=== PATIENT | male | born 1940 | race Caucasian/White ===

== ENCOUNTER 2016-10-09 17:15 | Inpatient (IN) | payer MEDICARE, OTHER ==
[~2016-10-09] VITALS: Ht 182.9 cm; Wt 91.0 kg
[2016-10-09] MEDS ORDERED: SODIUM CHLORIDE 0.9% 1000ML 250 ML IV STA (17:37)
--- NOTE | 2016-10-09 17:47 | EMERGENCY ROOM VISIT NOTE ---
History Report prepared by Inocencia: Britton Bojorquez Under the Supervision of: Dr. Arturo Hauser M.D. First contact with patient: 17:23 Chief Complaint: REFERRED BY DOCTOR Stated Complaint: BAD COUGH, HAD AN EKG WAS TOLD TO COME HERE History of Present Illness The patient is a 76 year old male who presents to the Emergency Room with complaints of a resolving cough that started around 4 days ago. He was seen at [facility] prior to arrival today and was referred here due to a concern with the patient's EKG. His chest x-ray was clear however. The patient is from [place], and has been extensively traveling by car and plane over the past week. He developed a bad cough during his travels, which became severe a few days ago. The patient thought it was chest congestion due to his wheezing, so he took Mucinex a few days ago. Last night, he says that his wheezing was intense, and it was hurting his ability to breathe. The patient's daughter gave the patient albuterol spray, and the patient notes that he started to feel better and his passageways opened up. The patient had another albuterol spray this morning, and it again helped. He says that his cough is mostly gone. The patient denies any jaw pain or any other pain, except that for the past few months, the patient has had pain around his chest intermittently while walking early in the morning. The patient had a heart attack 3 years ago, and he says this pain is not the same as the heart attack pain. The patient has seen his primary care physician for this chest pain, and the physician has said that it could be "asthma from cold mornings". The patient notes that this pain is only when he walks and that when he does heavier exertion such as skiing, he does not get this pain. The patient had a stent put in 3 years ago. He is on Coumadin , Aspirin, and Coreg. Source of History: patient, family Onset: 4 days ago Position: other (global - cough) Timing: other (resolving) Modifying Factors (Relieving): other (albuterol) Associated Symptoms: + SOB Note: Associated symptoms: Patient notes wheezing. Denies jaw pain or any other pain, other than for past few months intermittent pain around chest while walking in morning. Review of Systems See HPI for pertinent positives & negatives. A total of 10 systems reviewed and were otherwise negative. Past Medical & Surgical Medical Problems: (1) Acute lower gastrointestinal hemorrhage (2) Bronchitis (3) Chronic lower gastrointestinal hemorrhage (4) Heart attack (5) Prostate cancer Family History Cancer Diabetes mellitus FH: heart disease FHx: lung disease Hypertension Social History Smoking Status: Never Smoker Smokeless Tobacco Use: No Alcohol Use: occasionally Marital Status: Housing Status: lives with family Occupation Status: employed Current/Historical Medications Scheduled Aspirin (Aspirin Ec), 81 MG PO DAILY Atorvastatin (Lipitor), 40 MG PO DAILY Carvedilol (Coreg), 3.125 MG PO BID Dutasteride (Avodart), 0.5 MG PO DAILY Lisinopril (Zestril), 2.5 MG PO DAILY Spironolactone (Aldactone), 25 MG PO DAILY Warfarin Sod (Jantoven), 6 MG PO 4XWK Warfarin Sod (Jantoven), 4.5 MG PO 3XWK Allergies Coded Allergies: No Known Allergies (Unverified , 10/09/16) Physical Exam Vital Signs Date Time Temp Pulse Resp B/P Pulse Ox O2 Delivery O2 Flow Rate FiO2 10/09/16 19:38 67 20 130/72 98 Room Air 10/09/16 19:30 66 23 98 10/09/16 19:00 67 24 130/71 98 10/09/16 18:53 63 18 110/69 98 Room Air 10/09/16 17:37 65 10/09/16 17:31 97 Room Air 10/09/16 17:19 36.7 74 18 140/87 98 Room Air Physical Exam GENERAL: Patient is in no acute distress. HEENT: No acute trauma, normocephalic atraumatic, mucous membranes moist, no nasal congestion, no scleral icterus. NECK: No stridor, no adenopathy, no meningismus, trachea is midline. LUNGS: Scattered wheezing. No wheezing or rhonchi. Breath sounds equal and full. HEART: Regular rhythm with normal rate. Subtle systolic murmur. ABDOMEN: Soft, nontender, bowel sounds positive, no hernias, no peritonitis. RECTAL: Brown stool, heme positive. EXTREMITIES: No cyanosis or edema, full range of motion of all the joints without pain or difficulty, no signs for acute trauma. NEUROLOGIC: Oriented x 3, no acute motor or sensory deficits, no focal weakness. SKIN: No rash, no jaundice, no diaphoresis. Medical Decision & Procedures ER Provider Diagnostic Interpretation: X-ray results as stated below per interpretation by me and the radiologist: CHEST ONE VIEW PORTABLE CLINICAL HISTORY: Atypical chest pain and shortness of breath COMPARISON STUDY: No previous studies for comparison. FINDINGS: The cardiac and mediastinal contours are normal. There is no evidence of focal pulmonary consolidation. There is no evidence of failure. No pleural effusions are visualized.[ There are minor left basilar atelectatic changes. IMPRESSION: No active disease in the chest. Electronically signed by: Antoni Pelletier M.D. 10/09/2016 7:33 PM Dictated Date/Time: 10/09/2016 7:33 PM Laboratory Results 10/09/16 18:00 10/09/16 18:00 Test 10/09/16 18:00 Red Blood Count 3.30 M/uL (4.7-6.1) Mean Corpuscular Volume 79.7 fL (80-100) Mean Corpuscular Hemoglobin 24.8 pg (25-34) Mean Corpuscular Hemoglobin Concent 31.2 g/dl (32-36) RDW Standard Deviation 48.7 fL (36.4-46.3) RDW Coefficient of Variation 16.5 % (11.5-14.5) Mean Platelet Volume 9.5 fL (7.4-10.4) Prothrombin Time 24.0 SECONDS (9.0-12.0) Prothromb Time International Ratio 2.2 (0.9-1.1) Activated Partial Thromboplast Time 33.1 SECONDS (21.0-31.0) Partial Thromboplastin Ratio 1.3 Anion Gap 6.0 mmol/L (3-11) Est Creatinine Clear Calc Drug Dose 94.0 ml/min Estimated GFR () 102.7 Estimated GFR (Non- 88.6 BUN/Creatinine Ratio 19.2 (10-20) Calcium Level 8.7 mg/dl (8.5-10.1) Total Bilirubin 0.3 mg/dl (0.2-1) Aspartate Amino Transf (AST/SGOT) 18 U/L (15-37) Alanine Aminotransferase (ALT/SGPT) 34 U/L (12-78) Alkaline Phosphatase 52 U/L (45-117) Total Protein 6.8 gm/dl (6.4-8.2) Albumin 3.5 gm/dl (3.4-5.0) Globulin 3.3 gm/dl (2.5-4.0) Albumin/Globulin Ratio 1.1 (0.9-2) Laboratory results reviewed by me. Medications Administered Medications (Trade) Dose Ordered Sig/Flakito Route Start Time Stop Time Status Last Admin Dose Admin Sodium Chloride (Nss 1000ml) 250 ml @ 999 mls/hr Q16M STAT IV 10/09/16 17:37 10/09/16 17:52 DC 10/09/16 18:17 999 MLS/HR Nitroglycerin 0.5 inch 0.5 inch NOW STAT EXT 10/09/16 19:02 10/09/16 19:03 DC 10/09/16 19:02 0.5 INCH Phytonadione 10 mg/Sodium Chloride 51 ml @ 102 mls/hr ONE ONCE IV 10/09/16 19:15 10/09/16 19:44 DC 10/09/16 19:45 102 MLS/HR Sodium Chloride (Nss 1000ml) 1,000 ml @ 125 mls/hr Q8H STAT IV 10/09/16 19:09 10/09/16 21:28 DC 10/09/16 19:33 125 MLS/HR ECG Indication: SOB/dyspnea Rate (beats per minute): 67 Rhythm: normal sinus Findings: T-wave inversion (anterior, lateral ), other (old septal infarct) ED Course 172: The patient was evaluated in room B9. A complete history and physical exam was performed. 7: Ordered NSS 250 ml @ 999 mls/hr IV. 1901: Ordered Nitroglycerin 2% Oint 0.5 inch EXT. 1902: I reevaluated the patient and performed a rectal exam. He has brown stool , heme positive. The patient verbally expressed understanding and agreement of the treatment plan. The patient will be evaluated for further treatment. 1908: Ordered NSS 1000 ml @ 125 mls/hr IV. 0: I discussed the patient with Dr. Carl - [facility] hospitalist - he will evaluate the patient for further treatment. Medical Decision Differential diagnosis includes but is not limited to acute bronchitis, pneumonia, CHF, cardiac ischemia, anemia, electrolyte imbalance, NV. There is no leukocytosis. The patient is quite anemic with a hemoglobin around 8. Stool testing showed brown stool however, it was heme positive. INR was elevated consistent with someone using Coumadin. There was no significant electrolyte abnormality, kidney failure or hepatitis. EKG showed a normal sinus rhythm with an old septal infarct and inverted T waves laterally and anteriorly. I was unable to obtain an old EKG from the patient's home Hospital in [place]. Cardiac enzyme testing times one does show an elevation concerning for cardiac strain/injury. The patient was placed on nitroglycerin paste. He was given IV saline. I did give him a dose of IV vitamin K because of the anemia and Coumadin use. The patient requires admission/observation. He will likely require a blood transfusion. Blood was ordered but not given. I did speak to the patient and case management. The on-call hospitalist was consulted. Consults Time Called: 1919 Consulting Physician: Dr. Siddhartha VACA hospitalist Returned Call: -- I discussed the patient with Dr. Siddhartha VACA hospitalist - he will evaluate the patient for further treatment. Impression Primary Impression: EKG abnormality Additional Impressions: Anemia Elevated troponin Heme positive stool Scribe Attestation The scribe's documentation has been prepared under my direction and personally reviewed by me in its entirety. I confirm that the note above accurately reflects all work, treatment, procedures, and medical decision making performed by me. Departure Information Dispostion Being Evaluated By Hospitalist Patient Instructions My [facility] Problem Qualifiers
[2016-10-09 18:16] LABS: HEMATOCRIT 26.3 % (42-52); MEAN CELL VOLUME 79.7 fL (80-100); MEAN CORPUSCULAR HEMOGLOBIN 24.8 pg (25-34); MEAN CORPUSCULAR HGB CONC 31.2 g/dl (32-36); MEAN PLATELET VOLUME 9.5 fL (7.4-10.4); PLATELET COUNT 378 K/uL (130-400); WHITE BLOOD COUNT 6.82 K/uL (4.8-10.8)
[2016-10-09] MEDS ORDERED: WARF3TAB6 PO ×2 (18:19→18:20)
[2016-10-09] MEDS ORDERED: ATOR-24 PO (18:22)
[2016-10-09] MEDS ORDERED: CARV3.122 PO (18:23)
[2016-10-09] MEDS ORDERED: DUTA0.5C PO (18:24)
[2016-10-09] MEDS ORDERED: SPIR25TA PO (18:26)
[2016-10-09 18:27] LABS: INR 2.2 (0.9-1.1); PARTIAL THROMBOPLASTIN RATIO 1.3
[2016-10-09] MEDS ORDERED: LISI-789 PO (18:27)
[2016-10-09] MEDS ORDERED: ASPI81TA28 PO (18:28)
[2016-10-09 18:32] LABS: BUN/CREATININE RATIO 19.2 (10-20); CALCIUM 8.7 mg/dl (8.5-10.1); CREATININE 0.76 mg/dl (0.60-1.40); POTASSIUM 4.4 mmol/L (3.5-5.1)
[2016-10-09 18:50] LABS: ALB/GLOB RATIO 1.1 (0.9-2)
[2016-10-09] MEDS ORDERED: NITROGLYCERIN OINT 2% 1GM PACKET EXT STA (19:02)
[2016-10-09] MEDS ORDERED: SODIUM CHLORIDE 0.9% 1000ML 1,000 ML IV STA (19:09)
[2016-10-09] MEDS ORDERED: PHYTONADIONE INJ 10 MG in SODIUM CHLORIDE 0.9% 50ML 50 ML IV ONE (19:15)
--- NOTE | 2016-10-09 19:35 | DIAGNOSTIC IMAGING REPORT ---
CHEST ONE VIEW PORTABLE CLINICAL HISTORY: Atypical chest pain and shortness of breath COMPARISON STUDY: No previous studies for comparison. FINDINGS: The cardiac and mediastinal contours are normal. There is no evidence of focal pulmonary consolidation. There is no evidence of failure. No pleural effusions are visualized.[ There are minor left basilar atelectatic changes. IMPRESSION: No active disease in the chest. Electronically signed by: Antoni Pelletier M.D. 10/09/2016 7:33 PM Dictated Date/Time: 10/09/2016 7:33 PM
[2016-10-09] MEDS ORDERED: NITROGLYCERIN 0.4 MG SL PER TAB CHARGE SL PRN (20:00)
[2016-10-09] MEDS ORDERED: PANTOprazole INJ 80 MG in DEXTROSE 5% 100ML IV SCH (20:15)
[2016-10-09] MEDS ORDERED: LEVALBUTEROL/IPRATROPIUM NEB INH PRN (20:15)
[2016-10-09] MEDS ORDERED: ONDANSETRON INJ 2 MG/ML 2 ML VIAL IV PRN (20:15)
[2016-10-09] MEDS ORDERED: ACETAMINOPHEN IV 100 ML IV PRN (20:15)
[2016-10-09] MEDS ORDERED: PANTOprazole INJ 40 MG in DEXTROSE 5% 100ML IV SCH (20:30)
[2016-10-09 21:00] VITALS: BP 126/67; PULSE 70; TEMP 36.9; O2SAT 96; Ht 182.9 cm; Wt 91.0 kg
[2016-10-09 21:00] LABS: CKMB/CK RATIO 1.3 (0-3.0)
[2016-10-09] MEDS ORDERED: IPRATROPIUM BROMIDE NEB SOLN 0.02% 2.5 ML VIAL INH PRN (21:45)
[2016-10-09] MEDS ORDERED: LEVALBUTEROL 1.25MG/0.5ML NEB INH PRN (21:45)
[2016-10-09] MEDS ORDERED: CEFTRIAXONE SOD INJ 1 GM in DEXTROSE 5% ADD-VANTAGE 50ML 50 ML IV SCH (22:00)
--- NOTE | 2016-10-09 22:12 | History and Physical ---
History & Physical Date & Time of Service: Oct 09, 2016 at 22:12 Chief Complaint: Acute Lower Gastrointestinal Hemorrhage;Elevated Primary Care Physician: No Doctor, Assigned History of Present Illness Source: patient, family, spouse The patient is a 76-year-old male resident of [place], was seen at [facility] prior to arrival today for assessment of a cough that began about 4 days ago. His workup there included an EKG and laboratories, when his EKG was found to be abnormal and his hemoglobin was found to be low, he was referred to the emergency department for further workup. The patient has a history of a heart attack 3 years ago and coronary artery stent placement.. He does report occasional chest pain that occurs with physical activity and in particular with heavier exertion. He continues to take Coumadin on a daily basis. He reports an ongoing loss of blood rectally over the past several months, but has worsened and particular over the past few days. Past Medical/Surgical History Medical Problems: (1) Bronchitis Status: Resolved (2) Heart attack Status: Resolved (3) Prostate cancer Status: Resolved Family History Cancer Diabetes mellitus FH: heart disease FHx: lung disease Hypertension Social History Smoking Status: Never Smoker Smokeless Tobacco Use: No Alcohol Use: none Drug Use: none Marital Status: Housing status: lives with family Occupational Status: employed Multi-Drug Resistant Organisms History of MDRO: No Allergies Coded Allergies: No Known Allergies (Unverified , 10/09/16) Home Medications Scheduled Aspirin (Aspirin Ec), 81 MG PO DAILY Atorvastatin (Lipitor), 40 MG PO DAILY Carvedilol (Coreg), 3.125 MG PO BID Dutasteride (Avodart), 0.5 MG PO DAILY Lisinopril (Zestril), 2.5 MG PO DAILY Spironolactone (Aldactone), 25 MG PO DAILY Warfarin Sod (Jantoven), 6 MG PO 4XWK Warfarin Sod (Jantoven), 4.5 MG PO 3XWK Review of Systems The patient denies lower extremity swelling, vision change, hearing change, sore throat, fevers, chills, sweats, weight change, nausea, vomiting, abdominal pain, pelvic pain, blood in urine, dysuria, urinary frequency or urgency, lightheadedness, dizziness, headache, memory loss, rash, imbalance, focal weakness, numbness or tingling in arms or legs, arthralgias or myalgias, back or neck pain, night sweats, or allergy symptoms. The review of systems is otherwise negative other than for that already noted above, and at least 10 systems have been reviewed. Physical Exam Vital Signs Date Time Temp Pulse Resp B/P Pulse Ox O2 Delivery O2 Flow Rate FiO2 10/09/16 21:00 36.9 70 19 126/67 96 Room Air 10/09/16 20:46 70 20 120/81 100 10/09/16 19:38 67 20 130/72 98 Room Air 10/09/16 19:30 66 23 98 10/09/16 19:00 67 24 130/71 98 10/09/16 18:53 63 18 110/69 98 Room Air 10/09/16 17:37 65 10/09/16 17:31 97 Room Air 10/09/16 17:19 36.7 74 18 140/87 98 Room Air The patient is awake, well-developed and adequately nourished, alert and oriented 3, normocephalic and atraumatic, lying in bed and in no acute distress. HEENT--PERRL, EOMI, mucous membranes and oropharynx normal. Neck--supple, no JVD or bruits, thyroid normal, trachea midline, no adenopathy. Heart--normal S1 and S2, no extra beats, no murmurs, rubs or gallops. Lungs--coarse breath sounds and wheezes bilaterally, no respiratory distress, no accessory muscle use. Abdomen--normal bowel sounds and soft, nontender and nondistended, no hernias or masses, no organomegaly. Extremities--no cyanosis, clubbing or edema. There are good distal pulses b/l. Dermatologic--normal skin turgor, normal color, warm and dry, no abnormal lymph nodes, no rash. Neurologic--cranial nerves II through XII grossly intact, motor and sensory examination normal. Rheumatologic--normal range of motion, nontender, muscles and joints. Psychiatric--normal affect. Diagnostics Laboratory Results Results Past 24 Hours Test 10/09/16 18:00 10/09/16 20:24 Range/Units White Blood Count 6.82 4.8-10.8 K/uL Red Blood Count 3.30 4.7-6.1 M/uL Hemoglobin 8.2 14.0-18.0 g/dL Hematocrit 26.3 42-52 % Mean Corpuscular Volume 79.7 80-100 fL Mean Corpuscular Hemoglobin 24.8 25-34 pg Mean Corpuscular Hemoglobin Concent 31.2 32-36 g/dl RDW Standard Deviation 48.7 36.4-46.3 fL RDW Coefficient of Variation 16.5 11.5-14.5 % Platelet Count 378 130-400 K/uL Mean Platelet Volume 9.5 7.4-10.4 fL Prothrombin Time 24.0 9.0-12.0 SECONDS Prothromb Time International Ratio 2.2 0.9-1.1 Activated Partial Thromboplast Time 33.1 21.0-31.0 SECONDS Partial Thromboplastin Ratio 1.3 Sodium Level 141 136-145 mmol/L Potassium Level 4.4 3.5-5.1 mmol/L Chloride Level 107 98-107 mmol/L Carbon Dioxide Level 28 21-32 mmol/L Anion Gap 6.0 3-11 mmol/L Blood Urea Nitrogen 15 7-18 mg/dl Creatinine 0.76 0.60-1.40 mg/dl Est Creatinine Clear Calc Drug Dose 94.0 ml/min Estimated GFR () 102.7 Estimated GFR (Non- 88.6 BUN/Creatinine Ratio 19.2 10-20 Random Glucose 120 70-99 mg/dl Calcium Level 8.7 8.5-10.1 mg/dl Total Bilirubin 0.3 0.2-1 mg/dl Aspartate Amino Transf (AST/SGOT) 18 15-37 U/L Alanine Aminotransferase (ALT/SGPT) 34 12-78 U/L Alkaline Phosphatase 52 45-117 U/L Troponin I 0.138 0.128 0-0.045 ng/ml Total Protein 6.8 6.4-8.2 gm/dl Albumin 3.5 3.4-5.0 gm/dl Globulin 3.3 2.5-4.0 gm/dl Albumin/Globulin Ratio 1.1 0.9-2 Magnesium Level 2.0 1.8-2.4 mg/dl Total Creatine Kinase 134 39-308 U/L Creatine Kinase MB 1.7 0.5-3.6 ng/ml Creatine Kinase MB Ratio 1.3 0-3.0 Diagnostic Radiology Patient Name: KUSHAL ANGULO Unit Number: [id number] Dictated: 10/09/161932 Transcribed: 10/09/161932 ARG Printed Date/Time: [~ rep prt dt]/[~ rep prt tm] [~ rep ct labl] - [~ rep ct ivnm] [facility] [place] [address] Dictated: 10/09/161932 Transcribed: 10/09/161932 ARG Printed Date/Time: [~ rep prt dt]/[~ rep prt tm] [~ rep ct labl] - [~ rep ct ivnm] [~ rep ct add3]] CHEST ONE VIEW PORTABLE CLINICAL HISTORY: Atypical chest pain and shortness of breath COMPARISON STUDY: No previous studies for comparison. FINDINGS: The cardiac and mediastinal contours are normal. There is no evidence of focal pulmonary consolidation. There is no evidence of failure. No pleural effusions are visualized.[ There are minor left basilar atelectatic changes. IMPRESSION: No active disease in the chest. Electronically signed by: Antoni Pelletier M.D. 10/09/2016 7:33 PM Dictated Date/Time: 10/09/2016 7:33 PM The status of this report is Signed. Draft = Not yet reviewed or approved by Radiologist. Signed = Reviewed and approved by Radiologist. <AttendingPhy></AttendingPhy> <FamilyPhy>No Doctor, Assigned</FamilyPhy> < PrimaryPhy>No Doctor, Assigned</PrimaryPhy> <UnitNumber>[id number]</UnitNumber> <VisitNumber>[id number]</VisitNumber> <PatientName>KUSHAL ANGULO</ PatientName> <DateOfBirth>1940</DateOfBirth> <Location>C.EDB</Location> < ServiceDate>10/09/16</ServiceDate> <MNE>ESINDI</MNE> <OrderingPhy>Arturo Hauser M.D.</OrderingPhy> <OrderingPhyMNE>f rep ord dr jones</OrderingPhyMNE> < DictatingPhyMNE>f rep dict dr jones</DictatingPhyMNE> <CCListMNE>f rep ct mne</ CCListMNE> <AdmittingPhyMNE>f pt admit dr jones</AdmittingPhyMNE> <AttendingPhyMNE >f pt attend dr jones</AttendingPhyMNE> <ConsultingPhyMNE>f pt consult dr jones</ConsultingPhyMNE> <FamilyPhyMNE>f pt fam dr jones</FamilyPhyMNE> <OtherPhyMNE>f pt other dr jones</OtherPhyMNE> < PrimaryPhyMNE>f pt prim care dr jones</PrimaryPhyMNE> <ReferringPhyMNE>f pt referring dr jones</ReferringPhyMNE> EKG EKG #1 shows normal sinus rhythm at 67 bpm, with anterior lateral ischemia. EKG #2 shows normal sinus rhythm at 68 bpm, with anterior lateral ischemia. Impression Assessment and Plan CAD/hypertension/coronary artery stent/acute coronary syndrome--patient will be admitted to the telemetry unit for serial cardiac enzymes, cardiac rhythm monitoring and a 2-D echocardiogram with Dopplers. The patient will be kept nothing by mouth due to GI bleeding, and will therefore hold aspirin, carvedilol , lisinopril, and spironolactone. We'll target his hemoglobin to be around 10, giving him 2 units PRBCs tonight. Will consult cardiology. Acute on chronic Lower GI bleed--we'll keep patient nothing by mouth. Start normal saline KCl 20 mEq at 100 mils per hour. Follow H&H every 6 hours. We' ll reverse his INR of 2.2 with vitamin K 10 mg IV, repeat lab in the a.m. We' ll consult gastroenterology. Bronchitis--place on ceftriaxone 1 g IV daily, levofloxacin 500 mg IV every 24 hours, and Xopenex/Atrovent nebulizers every 6 hours while awake and every 2 hours when necessary. Cholesterolemia--hold atorvastatin at this time. BPH--hold Avodart at this time. Level of Care Telemetry Advanced Directives Existing Advance Directive: No Existing Living Will: Yes Existing Power of Sound Mixer: Yes Resuscitation Status FULL RESUSCITATION VTE Prophylaxis VTE Risk Assessment Done? Y/N: Yes Risk Level: Moderate Given or contraindicated: SCD's
[2016-10-09] MEDS: NSS + 20MEQ KCL 1000ML 1,000 ML IV SCH (22:21)
[2016-10-09 23:12] VITALS: BP 115/65; PULSE 67; TEMP 37; O2SAT 98
[2016-10-09] MEDS: NITROGLYCERIN OINT 2% 1GM PACKET EXT SCH (23:27)
[2016-10-09] MEDS: METOPROLOL TARTRATE 1 MG/ML VIAL IV. SCH (23:27)
[2016-10-09 23:38] VITALS: BP 92/63; PULSE 58; TEMP 36.9; O2SAT 98
[2016-10-10] VITALS (14 sets, daily range): BP systolic 90–111; BP diastolic 54–74; PULSE 56–76; TEMP 36.8–37.2; O2SAT 92–98
[2016-10-10] MEDS: PANTOprazole INJ 40 MG in DEXTROSE 5% 100ML IV SCH ×3 (01:51→12:10)
[2016-10-10] MEDS: METOPROLOL TARTRATE 1 MG/ML VIAL IV. SCH ×5 (03:47→19:40)
[2016-10-10 05:06] LABS: BASO % 0.3 %; BASO ABS # 0.02 K/uL (0-0.2); COMPLETE YES; EOS % 8.4 %; HEMATOCRIT 28.5 % (42-52); IG% 0.1 %; LYMPH % 14.9 %; LYMPH ABS # 1.03 K/uL (1.2-3.4); MEAN CELL VOLUME 80.7 fL (80-100); MEAN CORPUSCULAR HEMOGLOBIN 25.8 pg (25-34); MEAN CORPUSCULAR HGB CONC 31.9 g/dl (32-36); MEAN PLATELET VOLUME 9.5 fL (7.4-10.4); MONO % 12.4 %; NEUT % 63.9 %; PLATELET COUNT 320 K/uL (130-400); RED BLOOD COUNT 3.53 M/uL (4.7-6.1); WHITE BLOOD COUNT 6.92 K/uL (4.8-10.8)
[2016-10-10 05:16] LABS: INR 1.3 (0.9-1.1); PROTHROMBIN TIME (PATIENT) 14.6 SECONDS (9.0-12.0)
[2016-10-10 05:28] LABS: BUN/CREATININE RATIO 18.9 (10-20); CALCIUM 7.9 mg/dl (8.5-10.1); CREATININE 0.76 mg/dl (0.60-1.40); POTASSIUM 4.1 mmol/L (3.5-5.1)
[2016-10-10 05:38] LABS: CKMB/CK RATIO 1.1 (0-3.0)
[2016-10-10] MEDS: NITROGLYCERIN OINT 2% 1GM PACKET EXT SCH ×3 (06:14→17:49)
[2016-10-10] MEDS ORDERED: COUGH DROP (SUGAR FREE) LOZ 24 LOZ/1 BOX ONE (07:44)
[2016-10-10] MEDS ORDERED: PERFLUTREN LIPID MICROSPHERE (DEFINITY) IV ONE (09:11)
[2016-10-10] MEDS: NSS + 20MEQ KCL 1000ML 1,000 ML IV SCH ×2 (09:12→17:07)
--- NOTE | 2016-10-10 10:11 | ECHOCARDIOGRAM REPORT ---
*NOTICE TO RECEIVING CONSTITUTION PARTY AGENCY This information is strictly Confidential and protected under [place] law. [place] law prohibits you from making any further disclosure of this information unless further disclosure is expressly permitted by the written consent of the person to whom it pertains or is authorized by law. A general authorization for the release of medical or other information is not sufficient for this purpose. Hospital accepts no responsibility if the information is made available to any other person, INCLUDING THE PATIENT. Interpretation Summary * Name: KUSHAL ANGULO Study Date: 10/10/2016 08:52 AM BP: 106/59 mmHg * Patient Location: C.2E\S\E208\S\1 HR: 57 * : 1940 (M/d/yyy) Gender: Male Height: 70 in * Age: 76 yrs Ethnicity: MS Weight: 201 lb * Ordering Physician: Michoacano Carl * Referring Physician: Self, Referred * Performed By: Sanjay Gordillo RDCS * * Reason For Study: NSTEMI * BSA: 2.1 m2 * -- Conclusions -- * 1. Mildly dilated LV with mild concentric LVH. * 2. Moderate to severe LV dysfunction. LVEF 30-35%. Mid anterior, anteroseptal akinesis with akinetic and aneursymal apex consistent with LAD infarct. * 3. Normal RV size and function. * 4. Mild aortic valve sclerosis without stenosis. * 5. Grade I diastolic dysfunction. * 6. Normal estimated PA and RA pressures. * 7. No prior studies for comparison. Procedure Details * A complete two-dimensional transthoracic echocardiogram was performed (2D, M-mode, Doppler and color flow Doppler). * The study was technically difficult. * There were technical limitations due to patient'sPoor acoustic windows secondary to severe lung disease. * The study was technically difficult, but visualization was adequate with the administration of Definity ultrasound contrast. * A contrast injection of Definity was performed to improve assessment of LV function. * Contrast was injected into an intravenous site in the left arm. * One vial of Definity ultrasound contrast was diluted in normal saline to a total volume of 10 ml. A total of '5' ml of solution was administered during imaging. * Lot # [id number] of Definity utilized for procedure. * Expiration date . * The attending nurse who injected the contrast agent was BERTHA Abdi. Left Ventricle * The left ventricle is mildly dilated. * There is no thrombus. * There is mild concentric left ventricular hypertrophy. * Ejection Fraction = 30-35%. 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 Mid anterior, anteroseptal akinesis. Right Ventricle * The right ventricle is grossly normal size. * The right ventricular systolic function is normal as assessed by tricuspid annular plane systolic excursion (TAPSE) (normal >1.5 cm). Atria * The left atrium is moderately dilated. * The right atrium is mildly dilated. * No ASD detected; PFO is not assessed. Mitral Valve * The mitral valve is grossly normal. * Mitral stenosis is absent. * There is trace mitral regurgitation. Tricuspid Valve * The tricuspid valve is not well visualized, but is grossly normal. * There is no tricuspid stenosis. * Significant tricuspid regurgitation is absent. Aortic Valve * Aortic valve sclerosis mild, without significant aortic valvular stenosis. * There is no significant aortic regurgitation. Pulmonic Valve * The pulmonary valve is inadequately visualized, but the Doppler data is adequate for interpretation. * Pulmonic stenosis is absent. * There is no pulmonic valvular regurgitation. Great Vessels * The aortic root and proximal ascending aorta are normal sized. Pericardium/Pleural * There is no pericardial effusion. Great Vessels * Normal inferior vena cava size and collapsability with sniff indicates a normal right atrial pressure of 3 mmHg * There is no evidence of pulmonary hypertension. The PA systolic pressure is less than 36 mmHg. Left Ventricular Diastolic Function * Grade I diastolic dysfunction, (abnormal relaxation pattern). MMode 2D Measurements and Calculations IVSd 1.2 cm IVSs 1.5 cm LVIDd 5.7 cm LVIDs 4.9 cm LVPWd 1.2 cm LVPWs 1.5 cm IVS/LVPW 1.1 FS 14.5 % EDV(Teich) 162.8 ml ESV(Teich) 113.4 ml EF(Teich) 30.4 % EDV(cubed) 189.4 ml ESV(cubed) 118.4 ml EF(cubed) 37.5 % % IVS thick 20.6 % % LVPW thick 28.2 % LV mass(C)d 288.9 grams LV mass(C)dI 138.1 grams/m\S\2 LV mass(C)s 307.4 grams LV mass(C)sI 146.9 grams/m\S\2 SV(Teich) 49.5 ml SI(Teich) 23.6 ml/m\S\2 SV(cubed) 71.0 ml SI(cubed) 34.0 ml/m\S\2 EPSS 1.1 cm Ao root diam 3.4 cm Ao root area 8.8 cm\S\2 ACS 1.2 cm LA dimension 4.7 cm asc Aorta Diam 3.7 cm LA/Ao 1.4 LVOT diam 2.1 cm LVOT area 3.5 cm\S\2 Doppler Measurements and Calculations MV E max essie 73.5 cm/sec MV A max essie 83.9 cm/sec MV E/A 0.88 MV dec time 0.22 sec Ao V2 max 188.2 cm/sec Ao max PG 14.2 mmHg Ao max PG (full) 10.3 mmHg TARA(V,A) 1.8 cm\S\2 TARA(V,D) 1.8 cm\S\2 LV V1 max PG 3.9 mmHg LV V1 max 98.7 cm/sec PA V2 max 106.9 cm/sec PA max PG 4.6 mmHg
[2016-10-10] MEDS: ALBUT/IPRATROP 3MG/0.5MG NEB 3 ML VIAL INH SCH ×5 (12:00→23:22)
--- NOTE | 2016-10-10 13:40 | CARDIOLOGY CONSULTATION ---
DATE OF CONSULTATION: 10/10/2016 CONSULTATION REQUESTED BY: Dr. Carl. REASON FOR CONSULTATION: Elevated troponin, abnormal EKG. HISTORY OF PRESENT ILLNESS: Mr. Pineda is a very pleasant 76-year-old male with a history of coronary artery disease status post prior [place] in 2002 with PCI and stenting (anatomy unknown at this time), hypertension, dyslipidemia, prostate cancer status post resection, who was admitted in the setting of abnormal EKG, mildly elevated troponin and new onset anemia. In regards to patient's prior cardiac history, all of his prior care has been in [place], [place] where patient lives. He has been traveling recently to visit his family. He states that he had an [place] approximately 3 years ago, which was treated with 1 stent. Evidently, a second PCI was attempted but another stent was unable to be placed. Since that time, he has been managed on Coumadin due to what sounds like his cardiomyopathy. The patient endorses previously being told that he had an ejection fraction of around 40% back on his most recent echo, which he states was back in February of 2016. More recently, the patient endorses increased episodes of congestion and shortness of breath with associated wheezing. These can occur while he is exerting himself or at rest. Over the last 3 days, have been occurring more so at rest and was short of breath just with conversation. Did intermittently try albuterol inhalers with some relief but due to symptoms, presented to [facility] yesterday. There was noted to have an EKG with abnormalities and was referred to the Emergency Department. Upon initial evaluation, the patient was noted to be anemic with a hemoglobin down to 8. His initial troponin was mildly elevated at 0.138 and it subsequently trended down to 0.128 and 0.128. Initial EKG showed sinus rhythm with anteroseptal infarct and T-wave inversions anterior and laterally. The patient denies any significant chest pain, although he does state that recently over the last several months when he walks, he does get some discomfort up into his throat. Also of note, the patient reports that he has had episodes of bright red blood per rectum every 2 days or so over a month and was noted to be Hemoccult positive on presentation in the ED. PAST MEDICAL HISTORY: 1. Coronary artery disease status post prior [place] 3 years ago, treated previously with PCI with stenting. 2. Presumed cardiomyopathy; per patient, prior EF around 40%. 3. Hypertension. 4. Hyperlipidemia. 5. Prostate cancer status post radiation. FAMILY HISTORY: No significant family history of coronary artery disease or premature cardiac . SOCIAL HISTORY: Lives with his in [place], visiting daughter and grandchildren currently. Denies ever history of tobacco, does drink socially during the week. Denies any other illicit drugs. ALLERGIES: No known drug allergies. HOME MEDICATIONS: Aspirin 81, atorvastatin 40, carvedilol 3.125, Avodart, lisinopril 2.5, spironolactone 25 and Coumadin. REVIEW OF SYSTEMS: 10-point review of systems completed and otherwise negative unless stated in HPI. PHYSICAL EXAMINATION: VITAL SIGNS: Temperature 36.8, pulse 61, blood pressure 95/55. Satting 95% on room air. GENERAL: The patient appears comfortable in no acute distress. HEENT: Sclerae are anicteric. Oropharynx is clear. Mucous membranes are moist. NECK: Supple with no lymphadenopathy. He has no jugular venous distention. LUNGS: Clear to auscultation bilaterally. He has prolonged expiratory phase but otherwise no extra pulmonary sounds. CARDIAC: He is regular rate and rhythm. He has a 2/6 systolic ejection murmur heard best at the left upper sternal border. ABDOMEN: Soft, nontender. He has positive bowel sounds. EXTREMITIES: Warm. He has no significant lower extremity edema. He has intact 2+ radial pulses bilaterally. Diminished DP and PT pulses distally but normal capillary refill. SKIN: Shows no significant rashes or lesions. NEUROLOGIC: Nonfocal. PSYCHIATRIC: He is alert and appropriate. LABORATORY DATA: Sodium 140, potassium 4.1, BUN 14, creatinine of 0.8. LFTs within normal limits. Troponin 0.138, 0.128, 0.128. Hemoglobin of 8.2 on admission, status post 2 units of transfused packed red blood cells, now up to 9.1. White blood cell count 6.9, platelets of 320. INR on presentation was 2.2, down to 1.3 this morning. IMAGING: Chest x-ray showed no acute cardiopulmonary process. Telemetry reviewed, sinus rhythm with no significant arrhythmias or pauses. Echocardiogram: Echo completed today showed moderate to severe LV dysfunction with an EF of 30-35%. There was mid anterior, anteroseptal akinesis and apical akinesis with aneurysmal segments suggestive of prior LAD infarct. Remainder of wall motion was normal. There was mild aortic sclerosis without significant stenosis and mild AI. IMPRESSION AND PLAN: 1. Acute on chronic gastrointestinal bleed. 2. Ischemic cardiomyopathy with ejection fraction 30-35%. 3. Mildly elevated troponin. 4. Question bronchitis. 5. Long-term anticoagulation. Patient here with symptoms of shortness of breath, coughing, wheezing. Found to have new anemia and EKG consistent with old anterior infarct. Echocardiogram shows moderate to severe LV dysfunction with an EF of 30-35% and wall motion abnormalities consistent with a LAD distribution infarct. Per review of the echocardiogram, these findings appear to be chronic and suspect that patient's mildly elevated troponin is in the setting of demand ischemia with anemia and his chronic cardiomyopathy. Low suspicion for acute coronary syndrome at this time. Going forward, I agree with planned GI evaluation while holding aspirin and Coumadin. It appears that Coumadin was likely continued in the setting of his aneurysmal apex and okay to hold in the short time. We will plan to obtain further records in regards to his cardiac history tomorrow, Tuesday. In the interim, would be okay to hold DIAN, beta blockers, spironolactone in the setting of questionable GI bleed. Will need to be resumed when bleeding issues are stable. Otherwise, continue to monitor on telemetry and further recommendations pending outside hospital records. Thank you for allowing us to participate in the care of this patient. Please contact with any questions. RENE
--- NOTE | 2016-10-10 15:08 | Medical Consult ---
Consultation Note Date of Service Oct 10, 2016. Consultation Note Reason for consult: Rectal bleeding anemia History of Present Illness Source: patient, family, spouse 76 yo M with PMH sig for significant CAD on coumadin and aspirin in [facility] until last week, when he noted productive cough. He was seen at [facility], and told that he was anemic and had an abnormal EKG. He is subsequently referred for admission. On presentation his Hgb was 8.2 with MCV 79;stable VS He reports small volume hematochezia several times a week for the past several months. He denies abdominal pain, change in bowel habits, dark stool color. Of note, he has a h/o prostate CA s/p XRT; he does not take NSAIDs; he is on coumadin and ASA with fairly tight control of his INR. Overnight, he has received xopenex nebs and abx. He received 2 U PRBC with rise in Hgb to 9. He had increased troponins on admission, which are declining. He saw cards, who thought that troponins were secondary to demand ischemia and thought he was optimized for endoscopic procedures. His cough is much improved. Past Medical/Surgical History Medical Problems: (1) Bronchitis Status: Resolved (2) Heart attack Status: Resolved (3) Prostate cancer Status: Resolved Family History Cancer Diabetes mellitus FH: heart disease FHx: lung disease Hypertension Social History Smoking Status: Never Smoker Smokeless Tobacco Use: No Alcohol Use: none Drug Use: none Marital Status: Housing status: lives with family Occupational Status: employed Multi-Drug Resistant Organisms History of MDRO: No Allergies Coded Allergies: No Known Allergies (Unverified , 10/09/16) Home Medications Scheduled Aspirin (Aspirin Ec), 81 MG PO DAILY Atorvastatin (Lipitor), 40 MG PO DAILY Carvedilol (Coreg), 3.125 MG PO BID Dutasteride (Avodart), 0.5 MG PO DAILY Lisinopril (Zestril), 2.5 MG PO DAILY Spironolactone (Aldactone), 25 MG PO DAILY Warfarin Sod (Jantoven), 6 MG PO [id number] Warfarin Sod (Jantoven), 4.5 MG PO [id number] Review of Systems The patient denies lower extremity swelling, vision change, hearing change, sore throat, fevers, chills, sweats, weight change, nausea, vomiting, abdominal pain, pelvic pain, blood in urine, dysuria, urinary frequency or urgency, lightheadedness, dizziness, headache, memory loss, rash, imbalance, focal weakness, numbness or tingling in arms or legs, arthralgias or myalgias, back or neck pain, night sweats, or allergy symptoms. The review of systems is otherwise negative other than for that already noted above, and at least 10 systems have been reviewed. Physical Exam Vital Signs Date Time Temp Pulse Resp B/P Pulse Ox O2 Delivery O2 Flow Rate FiO2 10/09/16 21:00 36.9 70 19 126/67 96 Room Air 10/09/16 20:46 70 20 120/81 100 10/09/16 19:38 67 20 130/72 98 Room Air 10/09/16 19:30 66 23 98 10/09/16 19:00 67 24 130/71 98 10/09/16 18:53 63 18 110/69 98 Room Air 10/09/16 17:37 65 10/09/16 17:31 97 Room Air 10/09/16 17:19 36.7 74 18 140/87 98 Room Air Comfortable, NAD. He has no incr WOB. HEENT:oc clear, mild pallor CV: RRR Resp: CTA Abd: soft NT Extrem: no edema Rectal normal, no stoolin vault Diagnostics Laboratory Results Results Past 24 Hours Test 10/09/16 18:00 10/09/16 20:24 Range/Units White Blood Count 6.82 4.8-10.8 K/uL Red Blood Count 3.30 4.7-6.1 M/uL Hemoglobin 8.2 14.0-18.0 g/dL Hematocrit 26.3 42-52 % Mean Corpuscular Volume 79.7 80-100 fL Mean Corpuscular Hemoglobin 24.8 25-34 pg Mean Corpuscular Hemoglobin Concent 31.2 32-36 g/dl RDW Standard Deviation 48.7 36.4-46.3 fL RDW Coefficient of Variation 16.5 11.5-14.5 % Platelet Count 378 130-400 K/uL Mean Platelet Volume 9.5 7.4-10.4 fL Prothrombin Time 24.0 9.0-12.0 SECONDS Prothromb Time International Ratio 2.2 0.9-1.1 Activated Partial Thromboplast Time 33.1 21.0-31.0 SECONDS Partial Thromboplastin Ratio 1.3 Sodium Level 141 136-145 mmol/L Potassium Level 4.4 3.5-5.1 mmol/L Chloride Level 107 98-107 mmol/L Carbon Dioxide Level 28 21-32 mmol/L Anion Gap 6.0 3-11 mmol/L Blood Urea Nitrogen 15 7-18 mg/dl Creatinine 0.76 0.60-1.40 mg/dl Est Creatinine Clear Calc Drug Dose 94.0 ml/min Estimated GFR () 102.7 Estimated GFR (Non- 88.6 BUN/Creatinine Ratio 19.2 10-20 Random Glucose 120 70-99 mg/dl Calcium Level 8.7 8.5-10.1 mg/dl Total Bilirubin 0.3 0.2-1 mg/dl Aspartate Amino Transf (AST/SGOT) 18 15-37 U/L Alanine Aminotransferase (ALT/SGPT) 34 12-78 U/L Alkaline Phosphatase 52 45-117 U/L Troponin I 0.138 0.128 0-0.045 ng/ml Total Protein 6.8 6.4-8.2 gm/dl Albumin 3.5 3.4-5.0 gm/dl Globulin 3.3 2.5-4.0 gm/dl Albumin/Globulin Ratio 1.1 0.9-2 Magnesium Level 2.0 1.8-2.4 mg/dl Total Creatine Kinase 134 39-308 U/L Creatine Kinase MB 1.7 0.5-3.6 ng/ml Creatine Kinase MB Ratio 1.3 0-3.0 Diagnostic Radiology Patient Name: KUSHAL ANGULO Unit Number: [id number] Dictated: 10/09/161932 Transcribed: 10/09/161932 ARG Printed Date/Time: / - [facility] [place] [address] Dictated: 10/09/161932 Transcribed: 10/09/161932 ARG Printed Date/Time: / - ] CHEST ONE VIEW PORTABLE CLINICAL HISTORY: Atypical chest pain and shortness of breath COMPARISON STUDY: No previous studies for comparison. FINDINGS: The cardiac and mediastinal contours are normal. There is no evidence of focal pulmonary consolidation. There is no evidence of failure. No pleural effusions are visualized.[ There are minor left basilar atelectatic changes. IMPRESSION: No active disease in the chest. Electronically signed by: Antoni Pelletier M.D. 10/09/2016 7:33 PM Dictated Date/Time: 10/09/2016 7:33 PM The status of this report is Signed. Draft = Not yet reviewed or approved by Radiologist. Signed = Reviewed and approved by Radiologist. <AttendingPhy></AttendingPhy> <FamilyPhy>No Doctor, Assigned</FamilyPhy> < PrimaryPhy>No Doctor, Assigned</PrimaryPhy> <UnitNumber>[id number]</UnitNumber> <VisitNumber>[id number]</VisitNumber> <PatientName>KEVKUSHAL</ PatientName> <DateOfBirth>1940</DateOfBirth> <Location>C.EDB</Location> < ServiceDate>10/09/16</ServiceDate> <MNE>ESINDI</MNE> <OrderingPhy>Arturo Hauser M.D.</OrderingPhy> <OrderingPhyMNE>f rep ord dr jones</OrderingPhyMNE> < DictatingPhyMNE>f rep dict dr jones</DictatingPhyMNE> <CCListMNE>f rep ct karen</ CCListMNE> <AdmittingPhyMNE>f pt admit dr jones</AdmittingPhyMNE> <AttendingPhyMNE >f pt attend dr jones</AttendingPhyMNE> <ConsultingPhyMNE>f pt consult dr jones</ConsultingPhyMNE> <FamilyPhyMNE>f pt fam dr jones</FamilyPhyMNE> <OtherPhyMNE>f pt other dr jones</OtherPhyMNE> < PrimaryPhyMNE>f pt prim care dr jnoes</PrimaryPhyMNE> <ReferringPhyMNE>f pt referring dr jones</ReferringPhyMNE> EKG EKG #1 shows normal sinus rhythm at 67 bpm, with anterior lateral ischemia. EKG #2 shows normal sinus rhythm at 68 bpm, with anterior lateral ischemia. Impression Assessment and Plan Anemia Rectal bleeding - His anemia may be secondary to his chronic rectal bleeding, although I cannot rule out the possibility of a second cause. DDX for rectal bleeding includes XRT proctitis, occult cancer. He may have AVM disease in proximal intestine contributing to anemia. - I would recommend a cscopy and EGD. Per cardiology, he is medically optimized for endoscopic procedures. I would plan for cscopy on Tuesday to allow for prep on Tuesday, as long as he is cleared by anesthesia; I have asked anesthesiologist to see him this afternoon. His EGD should be deferred until his bronchitis is resolved. - He does not have evidence of a clinically significant acute GIB, and benefits of aspirin likely outweigh the risks. Will resume. - Please check iron studies. Would consider liberal x fusion strategy, given heart disease, with goal hgb 10 -- will defer to PCP.
--- NOTE | 2016-10-10 15:36 | Family Medicine Progress Note ---
Progress Note Date of Service Oct 10, 2016. Subjective Pt evaluation today including: conversation w/ patient, conversation w/ family , physical exam, chart review, lab review, review of studies, conversation w/ project management consultant, review of inpatient medication list Patient with no acute events overnight No chest pain currently but is still mildly short of breath w/ cough. Patient is able to lie flat, denies any leg swelling, palpitations or pre-syncope. No recorded bowel movements in the hospital and states that last bowel movement did not have any blood. He is occasionally constipated, but denies any diarrhea Denies any abdominal pain, vomiting, nausea, back pain or reflux. Denies any fevers, night sweats or chills. Has been given lunch as he is most likely to have bowel prep this afternoon in light of scope tomorrow. All Other Systems: Reviewed and Negative Medications Current Inpatient Medications Medications (Trade) Dose Ordered Sig/Flakito Route Start Time Stop Time Status Last Admin Dose Admin Potassium Chloride/Sodium Chloride (Nss + 20meq KCl 1000ml) 1,000 ml @ 100 mls/hr Q10H IV 10/09/16 21:30 11/08/16 21:29 10/10/16 09:12 100 MLS/HR Nitroglycerin (Nitrostat Tab) 0.4 mg UD PRN SL 10/09/16 20:00 11/08/16 19:59 Ondansetron HCl 4 mg 4 mg Q6H PRN IV 10/09/16 20:15 11/08/16 20:14 Acetaminophen (Ofirmev Iv) 100 ml @ 400 mls/hr Q8H PRN IV 10/09/16 20:15 11/08/16 20:14 Metoprolol Tartrate (Lopressor Iv) 2.5 mg Q4 IV. 10/10/16 00:00 11/09/16 00:00 10/09/16 23:27 2.5 MG Nitroglycerin 1 inch 1 inch Q6H EXT 10/10/16 00:00 11/09/16 00:00 10/10/16 12:11 1 INCH Pantoprazole Sodium/Dextrose (Protonix Inj/D5 100ml) 100 ml @ 20 mls/hr Q5H IV 10/10/16 01:30 11/09/16 01:29 10/10/16 12:10 20 MLS/HR Ipratropium [place] (Atrovent 0.02% 0.5MG/2.5ML Neb) 0.5 mg Q2H PRN INH 10/09/16 21:45 11/08/16 21:44 Levalbuterol (Xopenex 1.25MG/ 0.5ML Neb) 1.25 mg Q2H PRN INH 10/09/16 21:45 11/08/16 21:44 Albuterol/ Ipratropium (Duoneb) 3 ml Q4R INH 10/10/16 12:00 11/09/16 11:59 10/10/16 14:05 3 ML Objective Vital Signs Date Time Temp Pulse Resp B/P Pulse Ox O2 Delivery O2 Flow Rate FiO2 10/10/16 14:06 73 16 94 Room Air 10/10/16 12:00 Room Air 10/10/16 11:41 67 107/57 10/10/16 11:08 36.9 67 18 107/57 98 Room Air 10/10/16 09:12 61 95/55 10/10/16 08:00 Room Air 10/10/16 07:36 36.8 61 18 95/55 95 Room Air 10/10/16 04:00 Room Air 10/10/16 03:47 63 106/59 10/10/16 03:29 37.0 63 20 106/59 96 10/10/16 02:29 36.8 72 20 91/56 98 10/10/16 01:59 36.8 56 18 90/54 96 10/10/16 01:08 37.0 58 18 94/62 96 10/10/16 00:08 37.0 64 16 101/58 96 10/09/16 23:59 Room Air 10/09/16 23:38 36.9 58 22 92/63 98 10/09/16 23:27 67 115/65 10/09/16 23:12 37.0 67 20 115/65 98 Room Air 10/09/16 21:00 36.9 70 19 126/67 96 Room Air 10/09/16 20:46 70 20 120/81 100 10/09/16 19:38 67 20 130/72 98 Room Air 10/09/16 19:30 66 23 98 10/09/16 19:00 67 24 130/71 98 10/09/16 18:53 63 18 110/69 98 Room Air 10/09/16 17:37 65 10/09/16 17:31 97 Room Air 10/09/16 17:19 36.7 74 18 140/87 98 Room Air Physical Exam General Appearance: WD/WN, no apparent distress ENT: hearing grossly normal, pharynx normal Neck: supple, no adenopathy, no JVD, no carotid bruits Respiratory/Chest: + pertinent finding (coarse breath sounds with wheezing bilaterally) Cardiovascular: regular rate, rhythm, no edema, no JVD, + systolic murmur ( systolic murmur at left upper sternal border) Abdomen: normal bowel sounds, non tender, soft Extremities: non-tender, normal capillary refill, + pertinent finding ( decreased peripheral pulses) Neurologic/Psychiatric: alert, normal mood/affect, oriented x 3 Laboratory Results Results Past 24 Hours Test 10/09/16 18:00 10/09/16 20:24 10/10/16 04:50 10/10/16 12:10 Range/Units White Blood Count 6.82 6.92 4.8-10.8 K/uL Red Blood Count 3.30 3.53 4.7-6.1 M/uL Hemoglobin 8.2 9.1 14.0-18.0 g/dL Hematocrit 26.3 28.5 42-52 % Mean Corpuscular Volume 79.7 80.7 80-100 fL Mean Corpuscular Hemoglobin 24.8 25.8 25-34 pg Mean Corpuscular Hemoglobin Concent 31.2 31.9 32-36 g/dl RDW Standard Deviation 48.7 49.2 36.4-46.3 fL RDW Coefficient of Variation 16.5 16.5 11.5-14.5 % Platelet Count 378 320 130-400 K/uL Mean Platelet Volume 9.5 9.5 7.4-10.4 fL Prothrombin Time 24.0 14.6 9.0-12.0 SECONDS Prothromb Time International Ratio 2.2 1.3 0.9-1.1 Activated Partial Thromboplast Time 33.1 26.9 21.0-31.0 SECONDS Partial Thromboplastin Ratio 1.3 1.0 Sodium Level 141 140 136-145 mmol/L Potassium Level 4.4 4.1 3.5-5.1 mmol/L Chloride Level 107 108 98-107 mmol/L Carbon Dioxide Level 28 28 21-32 mmol/L Anion Gap 6.0 4.0 3-11 mmol/L Blood Urea Nitrogen 15 14 7-18 mg/dl Creatinine 0.76 0.76 0.60-1.40 mg/dl Est Creatinine Clear Calc Drug Dose 94.0 93.8 ml/min Estimated GFR () 102.7 102.7 Estimated GFR (Non- 88.6 88.6 BUN/Creatinine Ratio 19.2 18.9 10-20 Random Glucose 120 112 70-99 mg/dl Calcium Level 8.7 7.9 8.5-10.1 mg/dl Total Bilirubin 0.3 0.2-1 mg/dl Aspartate Amino Transf (AST/SGOT) 18 15-37 U/L Alanine Aminotransferase (ALT/SGPT) 34 12-78 U/L Alkaline Phosphatase 52 45-117 U/L Troponin I 0.138 0.128 0.128 0.087 0-0.045 ng/ml Total Protein 6.8 6.4-8.2 gm/dl Albumin 3.5 3.4-5.0 gm/dl Globulin 3.3 2.5-4.0 gm/dl Albumin/Globulin Ratio 1.1 0.9-2 Magnesium Level 2.0 2.0 1.8-2.4 mg/dl Total Creatine Kinase 134 113 106 39-308 U/L Creatine Kinase MB 1.7 1.2 1.1 0.5-3.6 ng/ml Creatine Kinase MB Ratio 1.3 1.1 1.0 0-3.0 Neutrophils (%) (Auto) 63.9 % Lymphocytes (%) (Auto) 14.9 % Monocytes (%) (Auto) 12.4 % Eosinophils (%) (Auto) 8.4 % Basophils (%) (Auto) 0.3 % Neutrophils # (Auto) 4.42 1.4-6.5 K/uL Lymphocytes # (Auto) 1.03 1.2-3.4 K/uL Monocytes # (Auto) 0.86 0.11-0.59 K/uL Eosinophils # (Auto) 0.58 0-0.5 K/uL Basophils # (Auto) 0.02 0-0.2 K/uL Immature Granulocyte % (Auto) 0.1 % Immature Granulocyte # (Auto) 0.01 0.00-0.02 K/uL Assessment and Plan 76 year old male from [place] w/ PMH of HTN, HLD, CAD w/ previous [place] and stent, prostate cancer and bronchitis presented with 1 week history of cough, chest congestion, wheezing and shortness of breath. Was sent from urgent care after abnormal EKG and decreased Hgb. Patient with mildly elevated troponins and echo showed chronic changes with no evidence of acute WV. Has had chronic ongoing GI bleeding HI. GI will be consulted with the hopes of doing a colonoscopy in order to find the source of bleeding. Bleeding per rectum - Hgb of 9.1 after 2 units of PRBC - Continue to monitor - Never had colonoscopy before - Pantoprazole IV - IVF 100ml/hr - Clear liquid diet by GI - GI consult for scope - Hold warfarin, aspirin, spironolactone, DIAN and b blockers until bleeding resolved CAD - Echo showed LVEF of 30-35% - Ischaemic Cardiomyopathy with aneurysmal apex - EKG changes likely chronic with elevated troponins due to demand ischaemia. - Will try obtain records from outside hospital Bronchitis - Stop AB as no elevated WCC and normal CXR - Likely viral in nature - Will start duonebs for continued wheezing HLD - hold atorvastatin BPH - hold avodart Dispo - Telemetry Full Code Resident Physician Supervision Note: I interviewed and examined the patient. Discussed with Dr. Zhu and agree with findings and plan as documented in the note. Any exceptions or clarifications are listed here: None Documented By: Festus Galaviz feeling OK now. no cp no sob. answered all questions to the best of my ability. dw cardiology. ros otherwise negative except for as above O: vitals noted nad breathing unlabored no pallor or icterus, no focal neuro deficits LGI bleed - needs scope - hopefully can be done as inpt since bleeding erratic, was enough to cause demand ischemia of significance, and lives in [place]. consult GI demand ischemia - pre-existing CAD, demand ischemia from anemia. now transfused. cardiology reviewed and while waiting on records, notes that current findings c/w what is known of is chronic CAD and likely no new changes cough - appearing bronchitis. nothing to suggest bacterial - hold abx. use nebs DVT proph - pharmacologic contraindicated dueto GI bleeding otehrwise as above Continued [facility] stay due to: multiple IV medications needed
--- NOTE | 2016-10-10 16:08 | Anesthesiology Progress Note ---
Anesthesia Progress Note Date of Service Oct 10, 2016. Progress Notes I was asked to see Mr. Pineda prior to his colonoscopy on 10/12/16. Mr. Pineda is a 76 year old male who resides in [place] but was in town visiting family and went to a [facility] for a worsening cough. Patient was diagnosed with bronchitis but found to have an abnormal ECG and sent to ER. In ER, patient with anemia and what appeared to be demand related increase in troponins. Patient subsequently found to have acute on chronic GI bleed. Patient has NKDA. PSH includes heart cath with stent (x1) 3 years ago and hernia repair. PMH significant for acute bronchitis (CXR 10/10/16 NAD), SOB, stable angina (states he walks daily and has through pain but also does light exercise with machines and has no problem), AL 3 years ago with stent placement, CAD, HTN, HLD, CHF ( EF 30-35% on echo done 10/10/16), OA, anemia, hx/o prostate CA s/p radiation therapy. Patient is a never smokier. EKG shows sinus rhythm with first degree AV block, septal infarct. Echo showed EF 30-35% wtih mod-severe LV dysfunction. H/H 9.1/28.5 (this was after 2 units pRBCs given on admission). Airway exam showed MP 3 with missing molars. Lungs were CTA and slight ejection murmur was noted. Cardiology has been consulted on the patient and states findings suggest chronic problems with new demand related elevation of troponins with a low suspicion for acute coronary syndrome. Patient has significant medical problems but appears to be as optimized as he can be prior to procedure on Tuesday. Sedation anesthesia was discussed with the patient and consent was obtained. All questions were answered and patient to be re-evlatued prior to colonoscopy on Tuesday for final determination of readiness for surgery.
[2016-10-11] VITALS (9 sets, daily range): BP systolic 111–129; BP diastolic 65–98; PULSE 60–75; TEMP 36.5–37.1; O2SAT 92–97
[2016-10-11] MEDS: NITROGLYCERIN OINT 2% 1GM PACKET EXT SCH ×2 (00:26→06:22)
[2016-10-11] MEDS: ALBUT/IPRATROP 3MG/0.5MG NEB 3 ML VIAL INH SCH ×6 (03:19→23:01)
[2016-10-11] MEDS: NSS + 20MEQ KCL 1000ML 1,000 ML IV SCH ×3 (03:46→19:59)
[2016-10-11] MEDS: METOPROLOL TARTRATE 1 MG/ML VIAL IV. SCH ×3 (04:05→08:00)
[2016-10-11 06:14] LABS: BASO % 0.3 %; BASO ABS # 0.02 K/uL (0-0.2); HEMATOCRIT 26.8 % (42-52); IG% 0.2 %; LYMPH % 17.5 %; LYMPH ABS # 1.09 K/uL (1.2-3.4); MEAN CORPUSCULAR HEMOGLOBIN 25.1 pg (25-34); MEAN CORPUSCULAR HGB CONC 31.3 g/dl (32-36); MEAN PLATELET VOLUME 9.5 fL (7.4-10.4); MONO % 9.8 %; NEUT % 64.2 %; PLATELET COUNT 304 K/uL (130-400); RED BLOOD COUNT 3.35 M/uL (4.7-6.1); WHITE BLOOD COUNT 6.23 K/uL (4.8-10.8)
[2016-10-11 06:25] LABS: INR 1.1 (0.9-1.1); PROTHROMBIN TIME (PATIENT) 11.4 SECONDS (9.0-12.0)
[2016-10-11 06:43] LABS: COMPLETE YES; HYPERSEGMENTED POLYS 1+
[2016-10-11 07:18] LABS: BUN/CREATININE RATIO 14.3 (10-20); CALCIUM 7.9 mg/dl (8.5-10.1); CREATININE 0.65 mg/dl (0.60-1.40); FERRITIN 7.2 ng/ml (8.0-388.0); MAGNESIUM 2.1 mg/dl (1.8-2.4); POTASSIUM 3.9 mmol/L (3.5-5.1)
[2016-10-11] MEDS: ASPIRIN/ALUM/MAGNES/CAL CARB 325 MG TAB PO SCH (08:32)
--- NOTE | 2016-10-11 08:34 | Cardiology Follow-Up ---
Subjective Subjective Date of Service: Oct 11, 2016. Pt evaluation today including: conversation w/ patient, physical exam, chart review, lab review, review of studies, review of inpatient medication list Additional Details: No chest pain overnight. Still with intermittent coughing. No significant shortness of breath. No gildardo bleeding. No events on telemetry Problem List Medical Problems: (1) Anemia Status: Acute (2) EKG abnormality Status: Acute (3) Elevated troponin Status: Acute (4) Heme positive stool Status: Acute Review of Systems Constitutional: No chills, No fever ENT: No hearing loss Respiratory: + cough, + shortness of breath, + wheezing Cardiac: No chest pain Abdomen: No diarrhea, No nausea, No pain Male : No dysuria Psychiatric: No depression symptoms Heme: No abnormal bleeding/bruising Endo: No fatigue Skin: No rash Objective Vital Signs Last Vital Signs Documentation Date Time Temp Pulse Resp B/P Pulse Ox O2 Delivery O2 Flow Rate FiO2 10/11/16 07:05 72 16 94 Room Air 10/11/16 04:14 37.0 111/65 Physical Exam: General Appearance: no apparent distress ENT: hearing grossly normal, pharynx normal Neck: supple, no adenopathy, no JVD, no carotid bruits Respiratory/Chest: chest non-tender, no accessory muscle use, + wheezing, + pertinent finding (few scattered wheezes bilaterally. coughing with deep inspiration) Cardiovascular: regular rate, rhythm, no edema, no JVD, + systolic murmur (2/6 systolic murmur at left upper sternal border) Abdomen: normal bowel sounds, non tender, soft Extremities: non-tender, normal capillary refill Neurologic/Psychiatric: alert, normal mood/affect, oriented x 3 Assessment and Plan 1. Acute on chronic GI bleed 2. Suspected blood loss anemia 3. Ischemic cardiomyopathy/Prior LAD infarct 4. Mild troponin elevation 5. Bronchitis Remains chest pain free, hemodynamically/electrically stable. Continue to feel that troponin elevation due to demand ischemia/chronic ischemic cardiomyopathy. Unlikely to represent true ACS. Discussed with GI --> from a cardiac standpoint acceptable risk to proceed with planned endoscopy. - In interim --> transfuse to maintain Hb > 8. Coumadin on hold - Can discontinue nitro patch. - Resume Carvedilol. Plan to resume spironolactone/DIAN as BP allows. - Continue ASA. Resume statin - Obtain outside cardiology records. Will continue to follow. Continued [facility] stay due to: multiple IV medications needed Medications: Current Inpatient Medications Medications (Trade) Dose Ordered Sig/Flakito Route Start Time Stop Time Status Last Admin Dose Admin Potassium Chloride/Sodium Chloride (Nss + 20meq KCl 1000ml) 1,000 ml @ 100 mls/hr Q10H IV 10/09/16 21:30 11/08/16 21:29 10/11/16 03:46 100 MLS/HR Nitroglycerin (Nitrostat Tab) 0.4 mg UD PRN SL 10/09/16 20:00 11/08/16 19:59 Ondansetron HCl 4 mg 4 mg Q6H PRN IV 10/09/16 20:15 11/08/16 20:14 Acetaminophen (Ofirmev Iv) 100 ml @ 400 mls/hr Q8H PRN IV 10/09/16 20:15 11/08/16 20:14 Metoprolol Tartrate (Lopressor Iv) 2.5 mg Q4 IV. 10/10/16 00:00 11/09/16 00:00 10/09/16 23:27 2.5 MG Nitroglycerin (Nitroglycerin 2% Oint) 1 inch Q6H EXT 10/10/16 00:00 11/09/16 00:00 10/11/16 06:22 1 INCH Ipratropium [place] (Atrovent 0.02% 0.5MG/2.5ML Neb) 0.5 mg Q2H PRN INH 10/09/16 21:45 11/08/16 21:44 Levalbuterol (Xopenex 1.25MG/ 0.5ML Neb) 1.25 mg Q2H PRN INH 10/09/16 21:45 11/08/16 21:44 Albuterol/ Ipratropium (Duoneb) 3 ml Q4R INH 10/10/16 12:00 11/09/16 11:59 10/11/16 07:05 3 ML Aspirin/Aluminum/ Magnesium/Ca Carb (Ascriptin Tab) 325 mg DAILY PO 10/11/16 09:00 11/10/16 08:59 Lab Results: 10/11/16 05:50 Red Blood Count 3.35, Mean Corpuscular Volume 80.0, Mean Corpuscular Hemoglobin 25.1, Mean Corpuscular Hemoglobin Concent 31.3, Mean Platelet Volume 9.5, Neutrophils (%) (Auto) 64.2, Lymphocytes (%) (Auto) 17.5, Monocytes (%) (Auto) 9.8, Eosinophils (%) (Auto) 8.0, Basophils (%) (Auto) 0.3, Neutrophils # (Auto) 4.00, Lymphocytes # (Auto) 1.09, Monocytes # (Auto) 0.61, Eosinophils # (Auto) 0.50, Basophils # (Auto) 0.02 10/11/16 05:50 Test 10/10/16 12:10 10/11/16 05:50 Total Creatine Kinase 106 U/L (39-308) Creatine Kinase MB 1.1 ng/ml (0.5-3.6) Creatine Kinase MB Ratio 1.0 (0-3.0) Troponin I 0.087 ng/ml (0-0.045) White Blood Count 6.23 K/uL (4.8-10.8) Red Blood Count 3.35 M/uL (4.7-6.1) Hemoglobin 8.4 g/dL (14.0-18.0) Hematocrit 26.8 % (42-52) Mean Corpuscular Volume 80.0 fL (80-100) Mean Corpuscular Hemoglobin 25.1 pg (25-34) Mean Corpuscular Hemoglobin Concent 31.3 g/dl (32-36) Platelet Count 304 K/uL (130-400) Mean Platelet Volume 9.5 fL (7.4-10.4) Neutrophils (%) (Auto) 64.2 % Lymphocytes (%) (Auto) 17.5 % Monocytes (%) (Auto) 9.8 % Eosinophils (%) (Auto) 8.0 % Basophils (%) (Auto) 0.3 % Neutrophils # (Auto) 4.00 K/uL (1.4-6.5) Lymphocytes # (Auto) 1.09 K/uL (1.2-3.4) Monocytes # (Auto) 0.61 K/uL (0.11-0.59) Eosinophils # (Auto) 0.50 K/uL (0-0.5) Basophils # (Auto) 0.02 K/uL (0-0.2) RDW Standard Deviation 49.0 fL (36.4-46.3) RDW Coefficient of Variation 16.6 % (11.5-14.5) Immature Granulocyte % (Auto) 0.2 % Immature Granulocyte # (Auto) 0.01 K/uL (0.00-0.02) Hypersegmented Polys 1+ Prothrombin Time 11.4 SECONDS (9.0-12.0) Prothromb Time International Ratio 1.1 (0.9-1.1) Activated Partial Thromboplast Time 25.5 SECONDS (21.0-31.0) Partial Thromboplastin Ratio 1.0 Anion Gap 7.0 mmol/L (3-11) Est Creatinine Clear Calc Drug Dose 111.2 ml/min Estimated GFR () 109.5 Estimated GFR (Non- 94.5 BUN/Creatinine Ratio 14.3 (10-20) Calcium Level 7.9 mg/dl (8.5-10.1) Magnesium Level 2.1 mg/dl (1.8-2.4) Iron Level 15 mcg/dl (35-175) Total Iron Binding Capacity 344 mcg/dl (250-450) Ferritin 7.2 ng/ml (8.0-388.0)
[2016-10-11] MEDS ORDERED: NURSING VERBAL MED ORDER ONE (12:45)
--- NOTE | 2016-10-11 13:32 | Family Medicine Progress Note ---
Progress Note Date of Service Oct 11, 2016. Subjective Pt evaluation today including: conversation w/ patient, conversation w/ family , physical exam, chart review, lab review, review of studies, review of inpatient medication list Pain: denies pain PO Intake: NPO Voiding: no incontinence No acute events overnight, Patient denies further bleeding per rectum. Denies Bowel movement since 10/09/16. Patient reports ongoing productive cough, but denies Chest Pain, SOB, wheezing, hemoptysis Constitutional: No chills, No fever Respiratory: + cough, + sputum, No dyspnea on exertion, No shortness of breath Cardiovascular: No PND, No chest pain, No claudication, No edema, No orthopnea, No palpitations Abdomen: + GI bleeding (not actively bleeding per rectum currently), No constipation, No diarrhea, No nausea, No pain, No vomiting Male : No dysuria, No hematuria, No urinary frequency Endo: No fatigue Skin: No bleeding, No color change, No itch, No rash Medications Current Inpatient Medications Medications (Trade) Dose Ordered Sig/Flakito Route Start Time Stop Time Status Last Admin Dose Admin Potassium Chloride/Sodium Chloride (Nss + 20meq KCl 1000ml) 1,000 ml @ 100 mls/hr Q10H IV 10/09/16 21:30 11/08/16 21:29 10/11/16 03:46 100 MLS/HR Nitroglycerin (Nitrostat Tab) 0.4 mg UD PRN SL 10/09/16 20:00 11/08/16 19:59 Ondansetron HCl 4 mg 4 mg Q6H PRN IV 10/09/16 20:15 11/08/16 20:14 Acetaminophen (Ofirmev Iv) 100 ml @ 400 mls/hr Q8H PRN IV 10/09/16 20:15 11/08/16 20:14 Ipratropium [place] (Atrovent 0.02% 0.5MG/2.5ML Neb) 0.5 mg Q2H PRN INH 10/09/16 21:45 11/08/16 21:44 Levalbuterol (Xopenex 1.25MG/ 0.5ML Neb) 1.25 mg Q2H PRN INH 10/09/16 21:45 11/08/16 21:44 Albuterol/ Ipratropium (Duoneb) 3 ml Q4R INH 10/10/16 12:00 11/09/16 11:59 10/11/16 07:05 3 ML Aspirin/Aluminum/ Magnesium/Ca Carb (Ascriptin Tab) 325 mg DAILY PO 10/11/16 09:00 11/10/16 08:59 10/11/16 08:32 325 MG Carvedilol (Coreg Tab) 3.125 mg BID PO 10/11/16 13:00 11/10/16 12:59 Polyethylene (Polyethylene Glycol) 119 gm TODAY@1700,2100 PO 10/11/16 17:00 10/11/16 23:59 Bisacodyl (Dulcolax Tab) 20 mg ONE ONCE PO 10/11/16 17:00 10/11/16 17:01 Objective Vital Signs Date Time Temp Pulse Resp B/P Pulse Ox O2 Delivery O2 Flow Rate FiO2 10/11/16 12:01 36.9 72 20 129/72 96 Room Air 10/11/16 08:00 Room Air 10/11/16 08:00 62 125/73 10/11/16 07:18 36.9 62 20 125/73 92 Room Air 10/11/16 07:05 72 16 94 Room Air 10/11/16 04:14 37.0 66 22 111/65 94 Room Air 10/11/16 04:05 58 10/11/16 04:00 Room Air 10/11/16 00:00 62 102/58 10/10/16 23:59 Room Air 10/10/16 23:52 37.1 67 22 111/74 92 Room Air 10/10/16 23:23 73 16 93 Room Air 10/10/16 20:00 Room Air 10/10/16 19:40 69 97/57 10/10/16 19:30 37.2 69 22 97/57 95 Room Air 10/10/16 19:13 76 16 93 Room Air 10/10/16 16:00 Room Air 10/10/16 16:00 74 103/64 10/10/16 15:39 74 16 94 Room Air 10/10/16 15:31 37.1 75 16 103/64 93 Room Air 10/10/16 14:06 73 16 94 Room Air Physical Exam Notes: GENERAL: alert, no distress, non-toxic EYE EXAM: normal conjunctiva, PERRL and EOM's grossly intact OROPHARYNX: no exudate, no erythema, lips, buccal mucosa, and tongue normal and mucous membranes are moist NECK: supple, no nuchal rigidity, no adenopathy, non-tender LUNGS: Clear to auscultation. Normal chest wall mechanics HEART: no murmurs, S1 normal and S2 normal ABDOMEN: abdomen soft, non-tender, normo-active bowel sounds, no masses, no rebound or guarding. SKIN: no rashes and no bruising UPPER EXTREMITIES: upper extremities are grossly normal. LOWER EXTREMITIES: No pitting edema. NEURO EXAM: AO x3, cranial nerves II-XII grossly intact, normal speech, no gross weakness of arms, no gross weakness of legs. Laboratory Results Results Past 24 Hours Test 10/11/16 05:50 Range/Units White Blood Count 6.23 4.8-10.8 K/uL Red Blood Count 3.35 4.7-6.1 M/uL Hemoglobin 8.4 14.0-18.0 g/dL Hematocrit 26.8 42-52 % Mean Corpuscular Volume 80.0 80-100 fL Mean Corpuscular Hemoglobin 25.1 25-34 pg Mean Corpuscular Hemoglobin Concent 31.3 32-36 g/dl Platelet Count 304 130-400 K/uL Mean Platelet Volume 9.5 7.4-10.4 fL Neutrophils (%) (Auto) 64.2 % Lymphocytes (%) (Auto) 17.5 % Monocytes (%) (Auto) 9.8 % Eosinophils (%) (Auto) 8.0 % Basophils (%) (Auto) 0.3 % Neutrophils # (Auto) 4.00 1.4-6.5 K/uL Lymphocytes # (Auto) 1.09 1.2-3.4 K/uL Monocytes # (Auto) 0.61 0.11-0.59 K/uL Eosinophils # (Auto) 0.50 0-0.5 K/uL Basophils # (Auto) 0.02 0-0.2 K/uL RDW Standard Deviation 49.0 36.4-46.3 fL RDW Coefficient of Variation 16.6 11.5-14.5 % Immature Granulocyte % (Auto) 0.2 % Immature Granulocyte # (Auto) 0.01 0.00-0.02 K/uL Hypersegmented Polys 1+ Prothrombin Time 11.4 9.0-12.0 SECONDS Prothromb Time International Ratio 1.1 0.9-1.1 Activated Partial Thromboplast Time 25.5 21.0-31.0 SECONDS Partial Thromboplastin Ratio 1.0 Sodium Level 142 136-145 mmol/L Potassium Level 3.9 3.5-5.1 mmol/L Chloride Level 112 98-107 mmol/L Carbon Dioxide Level 23 21-32 mmol/L Anion Gap 7.0 3-11 mmol/L Blood Urea Nitrogen 9 7-18 mg/dl Creatinine 0.65 0.60-1.40 mg/dl Est Creatinine Clear Calc Drug Dose 111.2 ml/min Estimated GFR () 109.5 Estimated GFR (Non- 94.5 BUN/Creatinine Ratio 14.3 10-20 Random Glucose 103 70-99 mg/dl Calcium Level 7.9 8.5-10.1 mg/dl Magnesium Level 2.1 1.8-2.4 mg/dl Iron Level 15 35-175 mcg/dl Total Iron Binding Capacity 344 250-450 mcg/dl Ferritin 7.2 8.0-388.0 ng/ml Assessment and Plan 76 yo M w/ hx of HTN, HLD, CAD w/ CAD, chronic GI bleed s/p stent, prostate cancer and bronchitis p/w cough/sob/wheezing x 1 wk admitted with Anemia, GI Bleed, mildly elevated troponin, also bring managed for suspected bronchitis Lower GI bleed - denies active bleeding, asx for anemia -s/p 2 units of PRBC 10/10 - Hgb of 8.4 <--9.1 - Continue to monitor h/h -Con't Pantoprazole IV -Con't IVF 100ml/hr - Clear liquid diet by GI - Colonoscopy scheduled for 10/12 per GI - warfarin, aspirin, spironolactone, DIAN and b blockers remain held -Transfuse RBC's if Hgb <8 CAD/ Ischemic CM, Aneurysmal [place] - asx, VSS - Echo showed LVEF of 30-35% - Ischemic Cardiomyopathy with aneurysmal apex - EKG changes likely chronic with elevated troponins due to demand ischaemia. - F/U outside records -Continue ASA -Nitro stopped per Cardiology, input appreciated Bronchitis -residual productive cough - ABX d/c'd 10/10 - Likely viral in etiology - PRN duonebs HLD - Atorvastatin held Documented By: Claudy Hernandez BPH -Avodart held Dispo - Telemetry Full Code Resident Physician Supervision Note: I was present with Dr. Deshpande during the history and exam. I discussed the case with the resident and agree with the findings and plan as documented in the note. Any exceptions or clarifications are listed here: Patient hemodynamically stable at the present time. His lung exam is clear at this time, his antibiotics are discontinued. I do not think his respiratory status would prohibit an EGD should a colonoscopy be non-revealing. I discussed with GI Team today. The patient's Coumadin remains on hold at this time. He is from [place] and plans on flying back home next week Resident Tracking Resident Involvement: Resident Care Provided Care Provided: Adult Hospital Medicine
[2016-10-11] MEDS: CARVEDILOL 3.125 MG TAB PO SCH ×2 (13:39→21:06)
--- NOTE | 2016-10-11 16:09 | Gastroenterology Progress Note ---
Progress Note Date of Service: Oct 11, 2016 Subjective Pt evaluation today including: conversation w/ patient, conversation w/ family , physical exam, chart review, lab review, review of inpatient medication list Pt denies any rectal bleeding w BM today. Denies any n/v, CP, SOB. Review of Systems Constitutional: No chills, No fever Respiratory: No cough, No shortness of breath Cardiac: No chest pain, No edema Abdomen: No GI bleeding, No nausea, No pain, No vomiting Medications Current Inpatient Medications Medications (Trade) Dose Ordered Sig/Flakito Route Start Time Stop Time Status Last Admin Dose Admin Potassium Chloride/Sodium Chloride (Nss + 20meq KCl 1000ml) 1,000 ml @ 100 mls/hr Q10H IV 10/09/16 21:30 11/08/16 21:29 10/11/16 13:39 100 MLS/HR Nitroglycerin (Nitrostat Tab) 0.4 mg UD PRN SL 10/09/16 20:00 11/08/16 19:59 Ondansetron HCl 4 mg 4 mg Q6H PRN IV 10/09/16 20:15 11/08/16 20:14 Acetaminophen (Ofirmev Iv) 100 ml @ 400 mls/hr Q8H PRN IV 10/09/16 20:15 11/08/16 20:14 Ipratropium [place] (Atrovent 0.02% 0.5MG/2.5ML Neb) 0.5 mg Q2H PRN INH 10/09/16 21:45 11/08/16 21:44 Levalbuterol (Xopenex 1.25MG/ 0.5ML Neb) 1.25 mg Q2H PRN INH 10/09/16 21:45 11/08/16 21:44 Albuterol/ Ipratropium (Duoneb) 3 ml Q4R INH 10/10/16 12:00 11/09/16 11:59 10/11/16 14:49 3 ML Aspirin/Aluminum/ Magnesium/Ca Carb (Ascriptin Tab) 325 mg DAILY PO 10/11/16 09:00 11/10/16 08:59 10/11/16 08:32 325 MG Carvedilol (Coreg Tab) 3.125 mg BID PO 10/11/16 13:00 11/10/16 12:59 10/11/16 13:39 3.125 MG Bisacodyl (Dulcolax Tab) 20 mg ONE ONCE PO 10/11/16 17:00 10/11/16 17:01 Polyethylene (Polyethylene Glycol) 119 gm TODAY@1700,2100 PO 10/11/16 17:00 11/10/16 16:59 Objective Vital Signs Date Time Temp Pulse Resp B/P Pulse Ox O2 Delivery O2 Flow Rate FiO2 10/11/16 15:43 37.1 61 18 118/65 95 Room Air 10/11/16 14:50 70 16 96 Room Air 10/11/16 12:01 36.9 72 20 129/72 96 Room Air 10/11/16 12:00 Room Air 10/11/16 12:00 Room Air 10/11/16 08:00 Room Air 10/11/16 08:00 62 125/73 10/11/16 07:18 36.9 62 20 125/73 92 Room Air 10/11/16 07:05 72 16 94 Room Air 10/11/16 04:14 37.0 66 22 111/65 94 Room Air 10/11/16 04:05 58 10/11/16 04:00 Room Air 10/11/16 00:00 62 102/58 10/10/16 23:59 Room Air 10/10/16 23:52 37.1 67 22 111/74 92 Room Air 10/10/16 23:23 73 16 93 Room Air 10/10/16 20:00 Room Air 10/10/16 19:40 69 97/57 10/10/16 19:30 37.2 69 22 97/57 95 Room Air 10/10/16 19:13 76 16 93 Room Air Physical Exam General Appearance: WD/WN, no apparent distress Eyes: normal inspection, PERRL, EOMI Neck: supple, no JVD, trachea midline Respiratory/Chest: normal breath sounds, no respiratory distress, no accessory muscle use Cardiovascular: regular rate, rhythm, no gallop, no murmur Abdomen: normal bowel sounds, non tender, soft Extremities: normal inspection, no pedal edema, no calf tenderness Neurologic/Psych: alert, normal mood/affect, oriented x 3 Skin: normal color, no jaundice, no rash Laboratory Results Last 24 Hours Test 10/11/16 05:50 White Blood Count 6.23 K/uL Red Blood Count 3.35 M/uL Hemoglobin 8.4 g/dL Hematocrit 26.8 % Mean Corpuscular Volume 80.0 fL Mean Corpuscular Hemoglobin 25.1 pg Mean Corpuscular Hemoglobin Concent 31.3 g/dl Platelet Count 304 K/uL Mean Platelet Volume 9.5 fL Neutrophils (%) (Auto) 64.2 % Lymphocytes (%) (Auto) 17.5 % Monocytes (%) (Auto) 9.8 % Eosinophils (%) (Auto) 8.0 % Basophils (%) (Auto) 0.3 % Neutrophils # (Auto) 4.00 K/uL Lymphocytes # (Auto) 1.09 K/uL Monocytes # (Auto) 0.61 K/uL Eosinophils # (Auto) 0.50 K/uL Basophils # (Auto) 0.02 K/uL RDW Standard Deviation 49.0 fL RDW Coefficient of Variation 16.6 % Immature Granulocyte % (Auto) 0.2 % Immature Granulocyte # (Auto) 0.01 K/uL Hypersegmented Polys 1+ Prothrombin Time 11.4 SECONDS Prothromb Time International Ratio 1.1 Activated Partial Thromboplast Time 25.5 SECONDS Partial Thromboplastin Ratio 1.0 Sodium Level 142 mmol/L Potassium Level 3.9 mmol/L Chloride Level 112 mmol/L Carbon Dioxide Level 23 mmol/L Anion Gap 7.0 mmol/L Blood Urea Nitrogen 9 mg/dl Creatinine 0.65 mg/dl Est Creatinine Clear Calc Drug Dose 111.2 ml/min Estimated GFR () 109.5 Estimated GFR (Non- 94.5 BUN/Creatinine Ratio 14.3 Random Glucose 103 mg/dl Calcium Level 7.9 mg/dl Magnesium Level 2.1 mg/dl Iron Level 15 mcg/dl Total Iron Binding Capacity 344 mcg/dl Ferritin 7.2 ng/ml Assessment and Plan Pt is a 76 y/o male seen for intermittent rectal bleeding, and anemia. Hx of prostate ca s/p XRT ended last year. Hgb staying between 8-9 after 2U PRBC transfusions. He never had endoscopic evaluations before - Keep NPO for EGD and colonoscopy tomorrow by Dr. Stanley. Bowel prep ordered. - Monitor H/H and transfuse prn. I performed a history and physical examination of the patient. I have discussed the patient's case, impression and plan with LAUREN Edwards on . Her note reflects my findings and plan. Most likely bleeding from radiation proctitis but can not rule out more sinister pathology. Will arrange EGD/ [place]. Patient and family at bedside agree. Roman Stanley MD
[2016-10-11] MEDS ORDERED: BISACODYL 5 MG TABEC PO ONE (17:00)
[2016-10-11] MEDS ORDERED: POLYETHYLENE GLYCER PWD 238 GM BTL PO SCH (17:00)
[2016-10-11] MEDS: POLYETHYLENE GLYCER PWD 238 GM BTL PO SCH ×2 (17:06→21:06)
[2016-10-11 19:51] LABS: HEMATOCRIT 29.9 % (42-52)
[2016-10-11] MEDS ORDERED: POLYETHYLENE (MIRALAX) 17 GM PACK PO ONE (21:00)
[2016-10-12] VITALS (9 sets, daily range): BP systolic 122–135; BP diastolic 71–85; PULSE 58–75; TEMP 36.6–36.7; O2SAT 94–96
[2016-10-12 01:21] LABS: HEMATOCRIT 28.4 % (42-52)
[2016-10-12] MEDS: ALBUT/IPRATROP 3MG/0.5MG NEB 3 ML VIAL INH SCH ×4 (03:46→15:48)
[2016-10-12 07:09] LABS: BASO % 0.3 %; BASO ABS # 0.02 K/uL (0-0.2); COMPLETE YES; EOS % 8.8 %; HEMATOCRIT 29.4 % (42-52); IG% 0.3 %; LYMPH % 12.5 %; MEAN CELL VOLUME 80.8 fL (80-100); MEAN PLATELET VOLUME 9.7 fL (7.4-10.4); MONO % 12.2 %; NEUT % 65.9 %; PLATELET COUNT 327 K/uL (130-400); RED BLOOD COUNT 3.64 M/uL (4.7-6.1); WHITE BLOOD COUNT 6.38 K/uL (4.8-10.8)
[2016-10-12 07:16] LABS: PROTHROMBIN TIME (PATIENT) 11.2 SECONDS (9.0-12.0)
[2016-10-12 07:48] LABS: BUN/CREATININE RATIO 7.6 (10-20); CALCIUM 8.1 mg/dl (8.5-10.1); CREATININE 0.61 mg/dl (0.60-1.40); MAGNESIUM 2.1 mg/dl (1.8-2.4)
--- NOTE | 2016-10-12 08:43 | Progress Note ---
Subjective Date of Service: Oct 12, 2016. Subjective Pt evaluation today including: conversation w/ patient, chart review, lab review, conversation w/ toy consultant, review of inpatient medication list Pain: denies PO Intake: nothing by mouth pending endoscopies Voiding: no voiding problems 76-year-old male who presented to the hospital with bronchitis and found to be profoundly anemic, awaiting colonoscopy and possible EGD today. The patient continues to complain of cough, however during the examination today, including the pulmonary exam, there is no observe coughing. The patient states that the cough is nonproductive now although he notes that he feels congestion in his chest. The antibiotics were stopped 2 days ago; he is remained afebrile and has a normal white blood cell count. Problem List Medical Problems: (1) Anemia Status: Acute (2) EKG abnormality Status: Acute (3) Elevated troponin Status: Acute (4) Heme positive stool Status: Acute Review of Systems Constitutional: No fatigue, No fever Eyes: No problem reported ENT: No sore throat, No trouble swallowing Respiratory: + cough, + wheezing, No dyspnea at rest, No hemoptysis, No shortness of breath Cardiac: No chest pain Abdomen: + GI bleeding, No constipation, No diarrhea, No vomiting Male : No urinary frequency All Other Systems: Reviewed and Negative Medications Current Inpatient Medications Medications (Trade) Dose Ordered Sig/Flakito Route Start Time Stop Time Status Last Admin Dose Admin Potassium Chloride/Sodium Chloride (Nss + 20meq KCl 1000ml) 1,000 ml @ 100 mls/hr Q10H IV 10/09/16 21:30 11/08/16 21:29 10/11/16 19:59 100 MLS/HR Nitroglycerin (Nitrostat Tab) 0.4 mg UD PRN SL 10/09/16 20:00 11/08/16 19:59 Ondansetron HCl 4 mg 4 mg Q6H PRN IV 10/09/16 20:15 11/08/16 20:14 Acetaminophen (Ofirmev Iv) 100 ml @ 400 mls/hr Q8H PRN IV 10/09/16 20:15 11/08/16 20:14 Ipratropium [place] (Atrovent 0.02% 0.5MG/2.5ML Neb) 0.5 mg Q2H PRN INH 10/09/16 21:45 11/08/16 21:44 Levalbuterol (Xopenex 1.25MG/ 0.5ML Neb) 1.25 mg Q2H PRN INH 10/09/16 21:45 11/08/16 21:44 Albuterol/ Ipratropium (Duoneb) 3 ml Q4R INH 10/10/16 12:00 11/09/16 11:59 10/12/16 07:01 3 ML Aspirin/Aluminum/ Magnesium/Ca Carb (Ascriptin Tab) 325 mg DAILY PO 10/11/16 09:00 11/10/16 08:59 10/11/16 08:32 325 MG Carvedilol (Coreg Tab) 3.125 mg BID PO 10/11/16 13:00 11/10/16 12:59 10/11/16 21:06 3.125 MG Objective Vital Signs Date Time Temp Pulse Resp B/P Pulse Ox O2 Delivery O2 Flow Rate FiO2 10/12/16 08:00 Room Air 10/12/16 07:46 36.7 62 20 123/85 94 Room Air 10/12/16 07:05 36.6 68 16 122/85 96 Room Air 10/12/16 07:01 66 16 96 Room Air 10/12/16 04:00 Room Air 10/12/16 03:46 66 16 96 Room Air 10/12/16 03:32 36.6 68 18 122/85 95 Room Air 10/12/16 00:01 36.6 62 18 131/77 95 Room Air 10/12/16 00:00 Room Air 10/11/16 23:01 60 16 97 Room Air 10/11/16 20:08 36.5 67 19 128/98 96 Room Air 10/11/16 20:00 Room Air 10/11/16 19:10 75 16 95 Room Air 10/11/16 16:00 Room Air 10/11/16 15:43 37.1 61 18 118/65 95 Room Air 10/11/16 14:50 70 16 96 Room Air 10/11/16 12:01 36.9 72 20 129/72 96 Room Air 10/11/16 12:00 Room Air 10/11/16 12:00 Room Air Physical Exam General Appearance: WD/WN, no apparent distress Eyes: normal inspection, PERRL, EOMI ENT: normal ENT inspection, hearing grossly normal, TMs normal, pharynx normal Neck: supple, no adenopathy, thyroid normal Respiratory/Chest: chest non-tender, lungs clear, normal breath sounds, no respiratory distress, no accessory muscle use Cardiovascular: regular rate, rhythm, no edema Abdomen: normal bowel sounds, non tender, soft, no organomegaly Extremities: normal range of motion, non-tender, normal inspection Neurologic/Psychiatric: no motor/sensory deficits, alert, normal mood/affect, oriented x 3 Skin: normal color Laboratory Results Last 24 Hours Test 10/11/16 19:43 10/12/16 01:10 10/12/16 06:50 Hemoglobin 9.5 g/dL 9.0 g/dL 9.1 g/dL Hematocrit 29.9 % 28.4 % 29.4 % White Blood Count 6.38 K/uL Red Blood Count 3.64 M/uL Mean Corpuscular Volume 80.8 fL Mean Corpuscular Hemoglobin 25.0 pg Mean Corpuscular Hemoglobin Concent 31.0 g/dl Platelet Count 327 K/uL Mean Platelet Volume 9.7 fL Neutrophils (%) (Auto) 65.9 % Lymphocytes (%) (Auto) 12.5 % Monocytes (%) (Auto) 12.2 % Eosinophils (%) (Auto) 8.8 % Basophils (%) (Auto) 0.3 % Neutrophils # (Auto) 4.20 K/uL Lymphocytes # (Auto) 0.80 K/uL Monocytes # (Auto) 0.78 K/uL Eosinophils # (Auto) 0.56 K/uL Basophils # (Auto) 0.02 K/uL RDW Standard Deviation 50.4 fL RDW Coefficient of Variation 16.8 % Immature Granulocyte % (Auto) 0.3 % Immature Granulocyte # (Auto) 0.02 K/uL Prothrombin Time 11.2 SECONDS Prothromb Time International Ratio 1.0 Activated Partial Thromboplast Time 24.8 SECONDS Partial Thromboplastin Ratio 1.0 Sodium Level 143 mmol/L Potassium Level 4.0 mmol/L Chloride Level 114 mmol/L Carbon Dioxide Level 23 mmol/L Anion Gap 6.0 mmol/L Blood Urea Nitrogen 5 mg/dl Creatinine 0.61 mg/dl Est Creatinine Clear Calc Drug Dose 116.9 ml/min Estimated GFR () 112.4 Estimated GFR (Non- 97.0 BUN/Creatinine Ratio 7.6 Random Glucose 101 mg/dl Calcium Level 8.1 mg/dl Magnesium Level 2.1 mg/dl Assessment and Plan 76-year-old male with history of hypertension, 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 GI Bleed Hemoglobin remained stable Scheduled for colonoscopy and possible EGD today. His IV Protonix which stop date 10/10; I prefer him to be on a PPI into a more definitive cause of his bleeding is identified. Restart IV Protonix this morning and can switch to by mouth Protonix following his endoscopies. His warfarin remains on hold secondary to the GI bleed, we'll readdress risk benefits of anticoagulation subsequent to the results of today's endoscopies. 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 We'll have to readdress aspirin therapy subsequent to today's endoscopies. Bronchitis He complains of a cough, but upon my examination today I do not notice significant cough and his pulmonary exam remains normal. Check a portal chest x-ray this morning; remains afebrile and without an elevated white blood cell count. Continues to improve, suspect viral etiology. Antibiotics are discontinued October 10. Continued [facility] stay due to: multiple IV medications needed
[2016-10-12] MEDS ORDERED: PROPOFOL IV EMULSION 10 MG/ML 20 ML VIAL IV ONE (09:55)
[2016-10-12] MEDS ORDERED: LIDOCAINE HCL 2% 2 ML VIAL (20MG/ML) ONE (09:55)
[2016-10-12] MEDS ORDERED: PANTOprazole INJ 40 MG in SYRINGE 0 ML IV ONE (11:00)
--- NOTE | 2016-10-12 11:00 | GI REPORT ---
Procedure Date: 10/12/2016 10:02 AM Procedure: Upper GI endoscopy Indications: Heartburn, Heme positive stool, Suspected upper gastrointestinal bleeding in patient with chronic blood loss, Anemia Medicines: See the Anesthesia note for documentation of the administered medications Complications: No immediate complications. Estimated Blood Loss: Estimated blood loss: none. Procedure: Pre-Anesthesia Assessment: - Prior to the procedure, a History and Physical was performed, and patient medications, allergies and sensitivities were reviewed. The patient's tolerance of previous anesthesia was reviewed. - The risks and benefits of the procedure and the sedation options and risks were discussed with the patient. All questions were answered and informed consent was obtained. - Patient identification and proposed procedure were verified prior to the procedure by the physician and the nurse. The procedure was verified in the pre-procedure area. - Pre-procedure physical examination revealed no contraindications to sedation. - After reviewing the risks and benefits, the patient was deemed in satisfactory condition to undergo the procedure. After obtaining informed consent, the endoscope was passed under direct vision. Throughout the procedure, the patient's blood pressure, pulse, and oxygen saturations were monitored continuously. The scope was introduced through the mouth, and advanced to the third part of duodenum. The upper GI endoscopy was accomplished without difficulty. The patient tolerated the procedure well. Findings: The esophagus was normal. The stomach was normal. The examined duodenum was normal. The cardia and gastric fundus were normal on retroflexion. Impression: - Normal esophagus. - Normal stomach. - Normal examined duodenum. - No specimens collected. Recommendation: - Perform a colonoscopy today. Roman Stanley M.D. Roman Stanley MD 10/12/2016 10:59:45 AM This report has been signed electronically. Note Initiated On: 10/12/2016 10:02 AM I attest to the content of the Intraoperative Record and orders documented therein, exceptions below
--- NOTE | 2016-10-12 11:04 | GI REPORT ---
Procedure Date: 10/12/2016 10:01 AM Procedure: Colonoscopy Indications: Hematochezia, Gastrointestinal occult blood loss, Anemia Medicines: See the Anesthesia note for documentation of the administered medications Complications: No immediate complications. Estimated Blood Loss: Estimated blood loss was minimal. Procedure: Pre-Anesthesia Assessment: - See the other procedure note for documentation of the pre-procedure assessment. After I obtained informed consent, the scope was passed under direct vision. Throughout the procedure, the patient's blood pressure, pulse, and oxygen saturations were monitored continuously. The scope was introduced through the anus and advanced to the cecum, identified by appendiceal orifice and ileocecal valve. The colonoscopy was performed without difficulty. The patient tolerated the procedure well. The quality of the bowel preparation was good. Findings: The perianal and digital rectal examinations were normal. A small polyp was found in the cecum. The polyp was sessile. The polyp was removed with a cold snare. Resection and retrieval were complete. Verification of patient identification for the specimen was done by the physician and nurse using the patient's name and medical record number. Estimated blood loss was minimal. Multiple small-mouthed diverticula were found in the sigmoid colon, in the descending colon and in the ascending colon. 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 No additional abnormalities were found on retroflexion. Impression: - One small polyp in the cecum, removed with a cold snare. Resected and retrieved. - Diverticulosis in the sigmoid colon, in the descending colon and in the ascending colon. - Radiation proctitis. Recommendation: - Await pathology results. - [facility]. Roman Stanley M.D. Roman Stanley MD 10/12/2016 11:03:32 AM This report has been signed electronically. Note Initiated On: 10/12/2016 10:01 AM I attest to the content of the Intraoperative Record and orders documented therein, exceptions below
--- NOTE | 2016-10-12 11:11 | Anesthesiology Progress Note ---
Anesthesia Post Op Note Date & Time Oct 12, 2016 at 11:10 Vital Signs Pain Intensity: 0.0 Vital Signs Past 12 Hours Date Time Temp Pulse Resp B/P Pulse Ox O2 Delivery O2 Flow Rate FiO2 10/12/16 11:00 64 20 112/64 96 Room Air 64 10/12/16 09:39 37.4 65 20 137/78 95 Room Air 65 10/12/16 08:00 Room Air 10/12/16 07:46 36.7 62 20 123/85 94 Room Air 10/12/16 07:05 36.6 68 16 122/85 96 Room Air 10/12/16 07:01 66 16 96 Room Air 10/12/16 04:00 Room Air 10/12/16 03:46 66 16 96 Room Air 10/12/16 03:32 36.6 68 18 122/85 95 Room Air 10/12/16 00:01 36.6 62 18 131/77 95 Room Air 10/12/16 00:00 Room Air Notes Mental Status: alert / awake / arousable, participated in evaluation Pt Amnestic to Procedure: Yes Nausea / Vomiting: adequately controlled Pain: adequately controlled Airway Patency, RR, SpO2: stable & adequate BP & HR: stable & adequate Hydration State: stable & adequate Anesthetic Complications: no major complications apparent Pt doing well.
[2016-10-12] MEDS ORDERED: BENZOCAIN/TETRACA/BUTAM SPRAY 200 APPLN/20 GM SPRY ONE (11:44)
[2016-10-12] MEDS: CARVEDILOL 3.125 MG TAB PO SCH (13:17)
[2016-10-12] MEDS: ASPIRIN/ALUM/MAGNES/CAL CARB 325 MG TAB PO SCH (13:18)
[2016-10-12] MEDS: NSS + 20MEQ KCL 1000ML 1,000 ML IV SCH (13:18)
[2016-10-12 13:23] LABS: HEMATOCRIT 30.9 % (42-52)
--- NOTE | 2016-10-12 14:13 | DIAGNOSTIC IMAGING REPORT ---
CHEST ONE VIEW PORTABLE CLINICAL HISTORY: Cough COMPARISON STUDY: 10/09/2016 FINDINGS: The heart is borderline enlarged. There is aortic tortuosity/ectasia. There is no failure. There is no lobar consolidation. There are linear bibasilar parenchymal opacities, likely atelectatic.[ There are no pleural effusions. IMPRESSION: Bibasilar atelectasis. No evidence of failure. No evidence of lobar consolidation. Electronically signed by: Antoni Pelletier M.D. 10/12/2016 2:10 PM Dictated Date/Time: 10/12/2016 2:10 PM
--- NOTE | 2016-10-12 14:50 | Discharge Instructions ---
Discharge Instructions Date of Service Oct 12, 2016. Admission Reason for Admission: Acute Lower Gastrointestinal Hemorrhage;Elevated Discharge Discharge Diagnosis / Problem: Radiation induced Proctitis, LGI Bleed, Anemia Discharge Goals Goal(s): Decrease discomfort, Improve function, Increase independence, Improve disease control, Improve nutritional status, Learn about illness, Diagnostic testing, Therapeutic intervention, Screening, Prevent Disease Progression, Specific goals Activity Recommendations Activity Limitations: resume your previous activity . Instructions / Follow-Up Instructions / Follow-Up -Please refrain from taking Coumadin until further evaluation by Primary Care provider -Take medications as prescribed -While on Iron sulfate, stool softener in recommended. You will sent home with Prescription for Colace -Please follow up with Primary Care doctor within 1-2 wks -Please have repeat Complete Blood Count drawn in 1 week -If you experience worsening pain, bleeding, Chest pain, Shortness of breath, Palpitation, increasing fatigue, please contact clinic or return to Emergency Dept Current Hospital Diet Patient's current hospital diet: Regular Diet Discharge Diet Recommended Diet: Regular Diet Procedures Procedures Performed: EGD, colonoscopy with polypectomy Pending Studies Studies pending at discharge: yes List of pending studies: Biopsy, [place] Medical Emergencies . Who to Call and When: Medical Emergencies: If at any time you feel your situation is an emergency, please call 911 immediately. . Non-Emergent Contact Non-Emergency issues call your: Primary Care Provider Call Non-Emergent contact if: temperature is above 100.5, your pain is worsening, your pain is unusual for you, your pain is concerning you, you have any medication questions . . "Provider Documentation" section prepared by Aryan Deshpande. . VTE Core Measure Inpt VTE Proph given/why not?: SCD's Resident Tracking Resident Involvement: Resident Care Provided Care Provided: Adult Hospital Medicine
[2016-10-12] MEDS ORDERED: DOCU-94 PO (14:53)
[2016-10-12] MEDS ORDERED: FERR1TAB23 PO (14:53)
--- NOTE | 2016-10-12 15:07 | Cardiology Follow-Up ---
Subjective Subjective Date of Service: Oct 12, 2016. Pt evaluation today including: conversation w/ patient, physical exam, chart review, lab review, review of studies, conversation w/ siebel consultant, review of inpatient medication list Problem List Medical Problems: (1) Anemia Status: Acute (2) EKG abnormality Status: Acute (3) Elevated troponin Status: Acute (4) Heme positive stool Status: Acute Review of Systems Constitutional: No chills, No fever Eyes: No problem reported ENT: No sore throat, No trouble swallowing Respiratory: No cough, No shortness of breath Cardiac: No chest pain, No edema Abdomen: No constipation, No diarrhea, No vomiting Male : No urinary frequency Psychiatric: No depression symptoms Endo: No fatigue Skin: No bleeding, No color change, No itch, No rash Objective Vital Signs Last Vital Signs Documentation Date Time Temp Pulse Resp B/P Pulse Ox O2 Delivery O2 Flow Rate FiO2 10/12/16 14:23 36.6 66 18 96 Room Air 10/12/16 12:09 135/71 Physical Exam: General Appearance: no apparent distress ENT: hearing grossly normal, pharynx normal Neck: supple, no adenopathy, thyroid normal Respiratory/Chest: chest non-tender, lungs clear, normal breath sounds, no respiratory distress Cardiovascular: regular rate, rhythm, no edema, + systolic murmur (2/6 systolic ejection murmur) Abdomen: normal bowel sounds, non tender, soft Extremities: normal range of motion, non-tender, normal inspection Neurologic/Psychiatric: no motor/sensory deficits, alert, normal mood/affect, oriented x 3 Skin: normal color Assessment and Plan 1. Acute on chronic GI bleed 2. Suspected blood loss anemia 3. Ischemic cardiomyopathy/Prior LAD infarct 4. Mild troponin elevation 5. Bronchitis Remains chest pain free, hemodynamically/electrically stable, no signs of heart failure S/P endoscopies today -- found to have radiation proctitis, thought to be likely culprit for bleeding. Blood counts stable - Stable from a cardiac standpoint. Ok with planned discharge today. - Continue carvedilol, and resume spironolactone and DIAN - Continue ASA and statin. - Agree with holding coumadin on discharge. Can discuss risk/benefits of anticoagulation further with his home fleecer. Continued [facility] stay due to: multiple IV medications needed Medications: Current Inpatient Medications Medications (Trade) Dose Ordered Sig/Flakito Route Start Time Stop Time Status Last Admin Dose Admin Potassium Chloride/Sodium Chloride (Nss + 20meq KCl 1000ml) 1,000 ml @ 100 mls/hr Q10H IV 10/09/16 21:30 11/08/16 21:29 10/12/16 13:18 100 MLS/HR Nitroglycerin (Nitrostat Tab) 0.4 mg UD PRN SL 10/09/16 20:00 11/08/16 19:59 Ondansetron HCl 4 mg 4 mg Q6H PRN IV 10/09/16 20:15 11/08/16 20:14 Acetaminophen (Ofirmev Iv) 100 ml @ 400 mls/hr Q8H PRN IV 10/09/16 20:15 11/08/16 20:14 Ipratropium [place] (Atrovent 0.02% 0.5MG/2.5ML Neb) 0.5 mg Q2H PRN INH 10/09/16 21:45 11/08/16 21:44 Levalbuterol (Xopenex 1.25MG/ 0.5ML Neb) 1.25 mg Q2H PRN INH 10/09/16 21:45 11/08/16 21:44 Albuterol/ Ipratropium (Duoneb) 3 ml Q4R INH 10/10/16 12:00 11/09/16 11:59 10/12/16 07:01 3 ML Aspirin/Aluminum/ Magnesium/Ca Carb (Ascriptin Tab) 325 mg DAILY PO 10/11/16 09:00 11/10/16 08:59 10/12/16 13:18 325 MG Carvedilol (Coreg Tab) 3.125 mg BID PO 10/11/16 13:00 11/10/16 12:59 10/12/16 13:17 3.125 MG Lab Results: 10/12/16 06:50 Red Blood Count 3.64, Mean Corpuscular Volume 80.8, Mean Corpuscular Hemoglobin 25.0, Mean Corpuscular Hemoglobin Concent 31.0, Mean Platelet Volume 9.7, Neutrophils (%) (Auto) 65.9, Lymphocytes (%) (Auto) 12.5, Monocytes (%) (Auto) 12.2, Eosinophils (%) (Auto) 8.8, Basophils (%) (Auto) 0.3, Neutrophils # (Auto ) 4.20, Lymphocytes # (Auto) 0.80, Monocytes # (Auto) 0.78, Eosinophils # (Auto ) 0.56, Basophils # (Auto) 0.02 10/12/16 13:14 10/12/16 06:50 Test 10/12/16 06:50 White Blood Count 6.38 K/uL (4.8-10.8) Red Blood Count 3.64 M/uL (4.7-6.1) Hemoglobin 9.1 g/dL (14.0-18.0) Hematocrit 29.4 % (42-52) Mean Corpuscular Volume 80.8 fL (80-100) Mean Corpuscular Hemoglobin 25.0 pg (25-34) Mean Corpuscular Hemoglobin Concent 31.0 g/dl (32-36) Platelet Count 327 K/uL (130-400) Mean Platelet Volume 9.7 fL (7.4-10.4) Neutrophils (%) (Auto) 65.9 % Lymphocytes (%) (Auto) 12.5 % Monocytes (%) (Auto) 12.2 % Eosinophils (%) (Auto) 8.8 % Basophils (%) (Auto) 0.3 % Neutrophils # (Auto) 4.20 K/uL (1.4-6.5) Lymphocytes # (Auto) 0.80 K/uL (1.2-3.4) Monocytes # (Auto) 0.78 K/uL (0.11-0.59) Eosinophils # (Auto) 0.56 K/uL (0-0.5) Basophils # (Auto) 0.02 K/uL (0-0.2) RDW Standard Deviation 50.4 fL (36.4-46.3) RDW Coefficient of Variation 16.8 % (11.5-14.5) Immature Granulocyte % (Auto) 0.3 % Immature Granulocyte # (Auto) 0.02 K/uL (0.00-0.02) Prothrombin Time 11.2 SECONDS (9.0-12.0) Prothromb Time International Ratio 1.0 (0.9-1.1) Activated Partial Thromboplast Time 24.8 SECONDS (21.0-31.0) Partial Thromboplastin Ratio 1.0 Anion Gap 6.0 mmol/L (3-11) Est Creatinine Clear Calc Drug Dose 116.9 ml/min Estimated GFR () 112.4 Estimated GFR (Non- 97.0 BUN/Creatinine Ratio 7.6 (10-20) Calcium Level 8.1 mg/dl (8.5-10.1) Magnesium Level 2.1 mg/dl (1.8-2.4)
[2016-10-12] MEDS ORDERED: VNTHFA/IN INH (17:14)
[2016-10-12] MEDS ORDERED: BENZ100C84 PO (17:16)
--- NOTE | 2016-10-12 20:37 | Discharge Summary ---
Discharge Summary Date of Service Oct 12, 2016. (Aryan Deshpande MD) Discharge Summary Admission Date: Oct 09, 2016 at 20:00 Discharge Date: Oct 12, 2016 Discharge Disposition: Home Principal Diagnosis: Lower GI Bleed, Radiation-induced Proctitis, Anemia Problems/Secondary Diagnoses: Bronchitis (Aryan Deshpande MD) Medication Reconciliation New Medications: Albuterol Hfa (Ventolin Hfa) 200 Puffs/95693 Mcg Aers 2 PUFFS INH Q4H for Wheezing for 30 Days, #1 INHALER Benzonatate (Tessalon Perles) 100 Mg Cap 1 CAP PO TID for 10 Days, #30 CAP Docusate Sodium (Colace) 100 Mg Cap 1 CAP PO BID for 30 Days, #60 CAP 2 Refills Ferrous Sulfate (Iron) 325 Mg Tab 1 CAP PO BID for 30 Days Continued Medications: Aspirin (Aspirin Ec) 81 Mg Tab 81 MG PO DAILY Atorvastatin (Lipitor) 40 Mg Tab 40 MG PO DAILY, TAB Carvedilol (Coreg) 3.125 Mg Tab 3.125 MG PO BID, TAB TAKE THIS MED WITH FOOD Dutasteride (Avodart) 0.5 Mg Cap 0.5 MG PO DAILY, CAP Lisinopril (Zestril) 2.5 Mg Tab 2.5 MG PO DAILY Spironolactone (Aldactone) 25 Mg Tab 25 MG PO DAILY, TAB Discontinued Medications: Warfarin Sod (Jantoven) 3 Mg Tab 6 MG PO 4XWK, TAB Warfarin Sod (Jantoven) 3 Mg Tab 4.5 MG PO 3XWK, TAB Discharge Exam Constitutional: No chills, No fever Respiratory: + cough, + sputum, No dyspnea on exertion, No shortness of breath Cardiovascular: No PND, No chest pain, No claudication, No edema, No orthopnea, No palpitations Abdomen: + GI bleeding (not actively bleeding per rectum currently), No constipation, No diarrhea, No nausea, No pain, No vomiting Male : No dysuria, No hematuria, No urinary frequency Endo: No fatigue Skin: No bleeding, No color change, No itch, No rash GENERAL: alert, no distress, non-toxic EYE EXAM: normal conjunctiva, PERRL and EOM's grossly intact OROPHARYNX: no exudate, no erythema, lips, buccal mucosa, and tongue normal and mucous membranes are moist NECK: supple, no nuchal rigidity, no adenopathy, non-tender LUNGS: Clear to auscultation. Normal chest wall mechanics HEART: no murmurs, S1 normal and S2 normal ABDOMEN: abdomen soft, non-tender, normo-active bowel sounds, no masses, no rebound or guarding. SKIN: no rashes and no bruising UPPER EXTREMITIES: upper extremities are grossly normal. LOWER EXTREMITIES: No pitting edema. NEURO EXAM: AO x3, cranial nerves II-XII grossly intact, normal speech, no gross weakness of arms, no gross weakness of legs. (Aryan Deshpande MD) Hospital Course This is a 76 yo M [place] resident with hx of HTN HLD, CAD, Ischemic CM, Prostate Cancer s/p radiation, chronic lower GI bleed on Coumadin x several months who presented from [facility] with anemia, abnormal EKG in addition to SOB , cough. Lower GI Bleed. Patient's initial Hgb was 8.4, eventually improved following 2 u of PRBC's. Coumadin was held during hospital stay. Gastroenterology consulted. EGD was unremarkable. Colonoscopy consistent with Radiation Proctitis. PER GI, patient was to expect chronic intermittent bleeding, and must avoid straining during bowel movement. Patient was discharged with Iron supplementation and stool softener with followup to PCP in [place] for repeat CBC. Bronchitis: Patient was given prn nebulizer treatments which gave him relief.He was placed on IV ceftriaxone and Levaquin on admission. CXR showed no active disease and WCC was nl. Abx were d/c'd during hospital stay. Patient was sent home with albuterol inhaler Elevated Troponin: Cardiology consulted. 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 Echo showed EF 30-35% Total Time Spent: Less than 30 minutes This includes examination of the patient, discharge planning, medication reconciliation, and communication with other providers. (Aryan Deshpande MD) Resident Physician Supervision Note: I was present with Dr. Deshpande during the history and exam. I discussed the case with the resident and agree with the findings and plan as documented in the note. Please see my note from the same date as well. In addition to the above, note that we have recommended holding coumadin; discussed the risk benefit with regards to ongoing bleeding, versus the benefit of CVA prevention in a patient with low LV function and aneurysmal dilatation. He will discuss the need for coumadin with his primary care givers upon his return to [place]. Documented By: Claudy Hernandez Total Time Spent: Greater than 30 minutes Discharge time totaled 45 minutes today. (Claudy Hernandez.,D.O.) Discharge Instructions Please refer to the electronic Patient Visit Report (Discharge Instructions) for additional information. (Aryan Deshpande MD) Resident Tracking Resident Involvement: Resident Care Provided Care Provided: Adult Hospital Medicine (Aryan Deshpande MD)
== END 2016-10-12 17:26 | disposition home or self-care (01) | DRG 378 ==
LOC: ENRESERVTM → ENRESERVDT → C.EDB 17:20 → C.2E 20:00
PROVIDERS: ADMIT Hospitalist; ATTEND Family Medicine
PROC: 0DBH8ZZ Excision of Cecum, Via Natural or Artificial Opening Endoscopic (ICD-10-PCS; principal; 2016-10-12 09:32)
PROC: 0DJ08ZZ Inspection of Upper Intestinal Tract, Via Natural or Artificial Opening Endoscopic (ICD-10-PCS; principal; 2016-10-12 09:32)
DX: K57.31 Diverticulosis of large intestine without perforation or abscess with bleeding (principal); I24.8 Other forms of acute ischemic heart disease; K62.7 Radiation proctitis; Y84.2 Radiological procedure and radiotherapy as the cause of abnormal reaction of the patient, or of later complication, without mention of misadventure at the time of the procedure; I10 Essential (primary) hypertension; I25.10 Atherosclerotic heart disease of native coronary artery without angina pectoris; J40 Bronchitis, not specified as acute or chronic; I25.2 Old myocardial infarction; C61 Malignant neoplasm of prostate; E78.5 Hyperlipidemia, unspecified; N40.0 Benign prostatic hyperplasia without lower urinary tract symptoms; D12.0 Benign neoplasm of cecum; Z79.01 Long term (current) use of anticoagulants; I25.5 Ischemic cardiomyopathy; D50.0 Iron deficiency anemia secondary to blood loss (chronic); M19.90 Unspecified osteoarthritis, unspecified site